=== PATIENT | male | born 1960 | race Caucasian/White ===

== ENCOUNTER 2020-04-03 11:53 | Inpatient (IN) | payer MEDICAID, SELFPAY ==
--- NOTE | ~2020-04-03 | XR_ITS ---
EXAMINATION: XR chest 1V portable EXAM DATE: 04/03/2020 13:06 INDICATION: Hip fracture, preoperative. TECHNIQUE: Portable AP frontal chest x-ray was obtained. There is no prior study for comparison. FINDINGS: Moderate hyperinflation. Biapical opacities consistent with scarring. Right basilar granulo ma. The lungs are otherwise clear. There are no pleural effusions. The cardiomediastinal silhouette is within normal limits. There is no pneumothorax suspected. The bones and soft tissues are unrema rkable. IMPRESSION: 1. No acute cardiopulmonary findings. 2. Hyperinflation. Reviewed, dictated and finalized at location B.
--- NOTE | ~2020-04-03 | US_ITS ---
EXAMINATION: US right upper quadrant DATE: 04/04/2020 08:49 INDICATION: Abnormal liver function tests. TECHNIQUE: Multiple grayscale and Doppler ultrasound images of the abdomen were obtained. COMPARISON: None FINDINGS: The visualized portions of the head, body, and tail of the pancreas are normal. The liver i s normal without focal lesion. No liver surface nodularity. There is normal flow in main portal vein. The gallbladder is normal in size and contains a 2 mm polyp, likely benign and needing no follow-up. No gallstones or gallbladder wall thickening. There was no sonographic Burk sign. The common duct is normal and measures 3 mm. IMPRESSION: 1. No etiology for abnormal liver function tests. Reviewed, dictated and finalized at location A.
--- NOTE | ~2020-04-03 | XR_ITS ---
EXAMINATION: XR surgery orthopedic DATE: 04/08/2020 08:29 INDICATION: Intertrochanteric nailing of the right femur. TECHNIQUE: 4 fluoroscopic spot images of the right femur were obtained during procedure performed by Dr. Perera. Radiologist was not present for the imaging or procedure. The amount of fluoroscopy time used during this procedure was 0.7 minutes. COMPARISON: 04/03/2020 FINDINGS: Interval reduction of previously seen intratrochanteric fracture of the proximal left femur which is fixed with an antegrade intramedullary jaylan, femoral neck dynamic compression screw and distal interlo cking screw. Alignment post reduction and fixation is near-anatomic. No other fractures identified. M oderate right hip osteoarthritis. Scattered atherosclerotic calcifications at the right pelvis and th igh. IMPRESSION: 1. Near-anatomic alignment post ORIF of an intratrochanteric fracture of the proximal right femur. Reviewed, dictated and finalized at location A. IMPRESSION: 1. Near-anatomic alignment post ORIF of an intratrochanteric fracture of the pr oximal right femur.
--- NOTE | ~2020-04-03 | CT_ITS ---
EXAMINATION: CT brain wo con DATE: 04/05/2020 16:23 INDICATION: Confusion. TECHNIQUE: Computed tomography (CT) of the head was performed without intravenous contrast. The mA wa s adjusted according to patient size. Iterative reconstruction technique was employed. The dose-lengt h product was 605.33 mGy-cm. COMPARISON: None FINDINGS: There are scattered areas of low attenuation in the cerebral white matter. There is no intr acranial hemorrhage, acute infarction, or abnormal intracranial mass lesion. The ventricles are jordyn l in size. There is an osteoma in left ethmoid sinus. The mastoid air cells are normal. The orbits ar e normal. IMPRESSION: 1. Mild nonspecific cerebral white matter disease, which likely represents chronic small vessel ische christel disease. Reviewed, dictated and finalized at location A. IMPRESSION: 1. Mild nonspecific cerebral white matter disease, which likely represents global regulatory affairs manager ijeoma small vessel ischemic disease.
--- NOTE | ~2020-04-03 | XR_ITS ---
EXAMINATION: XR hip RT 2V w AP pelvis EXAM DATE: 04/03/2020 12:27 INDICATION: Fell 3 days ago, right hip pain. TECHNIQUE: Right hip frontal, crosstable lateral projections for interpretation. Frontal projection p patricia. There is no prior study for comparison. FINDINGS: Acute closed posttraumatic right hip intertrochanteric fracture with medial angulation. No dislocation. Pelvic ring appears intact. There are arterial calcifications, arteriosclerosis. IMPRESSION: Acute right hip intertrochanteric fracture. Reviewed, dictated and finalized at location B.
--- NOTE | ~2020-04-03 | CT_ITS ---
EXAMINATION:CT chest wo con DATE: 04/05/2020 16:23 INDICATION: Shortness of breath. TECHNIQUE: Computed tomography (CT) of the chest was performed without intravenous contrast. Automate d exposure control and iterative reconstruction technique were employed. The dose-length product (DLP ) was 138.79 mGy-cm. COMPARISON: Chest single view 04/03/2020 FINDINGS: There is mild emphysema. There is mild scarring at the lung apices. A calcified right lung nodule is consistent with old granulomatous disease. There is a calcified pleural plaque at right sloan g base. There are airspace and groundglass opacities in the posterior upper and lower lobes. There ar e mild peripheral ground glass opacities in right middle lobe and lingula. There is mucous plugging i n right lower lobe bronchus intermedius. There are small pleural effusions. The heart size is normal. There are coronary artery calcifications. No pericardial effusion. There is mild thoracic spondylosi s. There is a compression fracture of T6 with 1/5 loss of height. There is a burst fracture of T12 wi th 3/5 loss of height centrally and retropulsion of bone 3 mm into central spinal canal. IMPRESSION: 1. Airspace and groundglass opacities in the lungs with a dependent predominance, likely atelectasis. Pneumonia cannot be excluded. 2. Small pleural effusions. 3. Mild emphysema. 4. Age-indeterminate T6 compression fracture and T12 burst fracture. Reviewed, dictated and finalized at location A. IMPRESSION: 1. Airspace and groundglass opacities in the lungs with a dependent predominanc e, likely atelectasis. Pneumonia cannot be excluded. 2. Small pleural effusions. 3. Mild emphysema. 4. Age-indeterminate T6 compression fracture and T12 burst fracture.
[2020-04-03 11:56] VITALS: BP 130/88; PULSE 98; RESP 16; TEMP 36.5; O2SAT 98
--- NOTE | 2020-04-03 12:54 | ECG_ITS ---
Measurements Intervals [place] Rate: 99 P: 70 OR: 147 QRS: 83 QRSD: 86 T: 90 QT: 350 QTc: 449 Interpretive Statements SINUS RHYTHM BORDERLINE ST ABNORMALITY- DIFFUSE LEADS BASELINE ARTIFACT- I, II, III, AVL, V1, V5-V6 BORDERLINE ECG Electronically Signed On 04-03-2020 14:30:25 CDT by Efe Jacobo D.O.
--- NOTE | 2020-04-03 12:59 | ED.GENADULT ---
HPI - General Adult General Chief complaint: Extremity Injury, Lower Stated complaint: R HIP PAIN Time Seen by Provider: 04/03/20 12:17 Source: patient History of Present Illness HPI narrative: 59 years old white male presents with pain at the right hip area. Patient had a fall 4 days ago after having a spell of dizziness at home. Patient reports a history of intermittent dizziness for over 2 years of unknown etiology. Patient lives alone, last time was seen by a physician over 20 years ago, patient uses vitamins which he ran out of it lately. Denying taking any medications or any history of disease. Patient is alcoholic, and tobacco dependent. Denies drug use. Related Data Home Medications Medication Instructions Recorded Confirmed No Home Medications 04/03/20 04/03/20 Allergies Allergy/AdvReac Type Severity Reaction Status Date / Time No Known Allergies Allergy Verified 04/03/20 12:00 Review of Systems Review of Systems: Narrative: CONSTITUTIONAL: Denies fever, chills, or sweats. EYES: Denies visual changes, redness, or discharge. ENT: Denies rhinorrhea, congestion, sore throat, or otalgia. CARDIOVASCULAR: Denies chest pain, palpitations, or edema. RESPIRATORY: Denies cough or dyspnea. GASTROINTESTINAL: Denies abdominal pain, nausea, vomiting, or diarrhea. GENITOURINARY: Denies dysuria or hematuria. SKIN: Denies rash or itching. MUSCULOSKELETAL: Denies back pain, joint pain, or myalgia. NEUROLOGIC: Denies headache, numbness, or weakness. PSYCHIATRIC: Denies anxiety or depression. FORMERLY [facility], 1928–1983 Social History Social History (Updated 04/03/20 @ 13:04 by Petra Dumas MD) Tobacco type: cigarettes Alcohol intake: current Substance use: never Living arrangements: alone Occupation/Education: unemployed Gender identity (if verbalized by the patient): Male Exam Narrative: Exam Narrative: General appearance: Well-developed,, malnourished, poor hygienic condition, friend at the bedside. Skin: Normal color, is soft mass at the left face immediately below left eye, 3 x 3 cm, soft, nontender. Head: Normocephalic, nontraumatic Eyes: Clear conjunctiva ENT: Oropharynx normal, ears normal, nose normal Neck: Supple, nontender Chest and respiratory: Airway patent, no respiratory distress, no accessory muscle use Heart: Regular rate/rhythm Abdomen: Soft, nontender, no organomegaly, quiet bowel sounds Vascular: Normal peripheral pulses, normal capillary refill. Musculoskeletal: Severe limited range of motion of the right hip, right lower extremity is shorter and externally rotated than the left 1. Neurologic: Alert and oriented ?3, DIRECTOR E LEARNING is normal as tested, no gross motor deficit Course Course Emergency Course: Stable Consultations Consultation #1: Dr. Perera Date: 04/03/20 Time: 15:33 Consultation #2: Dr. Holcomb Date: 04/03/20 Time: 15:33 Vital Signs Vital signs: Vital Signs Temperature 36.5 C 04/03/20 11:56 Pulse Rate 98 04/03/20 11:56 Respiratory Rate 16 04/03/20 11:56 Blood Pressure 130/88 04/03/20 11:56 Pulse Oximetry 98 04/03/20 11:56 Temperature 36.5 C 04/03/20 11:56 Pulse Rate 72 04/03/20 14:00 Respiratory Rate 18 04/03/20 14:00 Blood Pressure 116/73 04/03/20 14:00 Pulse Oximetry 100 04/03/20 14:00 Medical Decision Making [facility] Narrative Medical decision making narrative: Patient presents with a fall secondary to dizziness, does not have a family physician, malnourished, complaining of pain at the right hip which is consistent with hip fracture. My plan to get labs, x-ray of the right hip, EKG and chest x-ray to rule out other medical conditions. Further plan to follow. X-ray showed f
[2020-04-03] MEDS: ONDANSETRON INJ 4 MG/2 ML VIAL IV PUSH (13:13)
[2020-04-03] MEDS: MORPHINE SULFATE (*CRX) 4 MG/ML INJ IV PUSH ×2 (13:13→22:25)
[2020-04-03 13:25] LABS: Basophils Percent Auto 0.3 % (0.2-1.2); Eosinophils Percent Auto 0.3 % (0-4.4); Hematocrit 32.9 % (42.0-52.0); Hemoglobin 11.8 g/dL (14.0-18.0); Immature Granulocyte Absolute 0.09 K/mm3 (0.00-0.031); Immature Granulocyte Percent A 0.7 % (0-0.5); Lymphocytes Absolute Auto 1.15 K/mm3 (0.9-3.2); Lymphocytes Percent Auto 9.3 % (18.3-44.2); Mean Corpuscular HGB Conc 35.9 g/dl (32-36); Mean Corpuscular Hemoglobin 34.4 pg (26-34); Mean Corpuscular Volume 95.9 fl (80-100); Mean Platelet Volume 11.6 fl (7.4-10.4); Monocytes Absolute Auto 0.9 K/mm3 (0.1-0.6); Monocytes Percent Auto 7.5 % (2.6-8.5); Neutrophils Absolute Auto 10.1 K/mm3 (1.3-6.7); Neutrophils Percent Auto 81.9 % (45.5-73.1); Platelet Count Result 164 k/mm3 (150-375); Red Blood Count 3.43 M/mm3 (4.6-6.20); Red Cell Distribution Width 11.9 % (11.5-14.5); White Blood Count 12.3 K/mm3 (4.5-10.0)
[2020-04-03 13:45] LABS: INR 1.3; Partial Thromboplastin Time 38.1 SECONDS (22.3-36.8); Prothrombin Time 15.6 Seconds (11.1-14.7)
[2020-04-03 14:00] VITALS: BP 116/73; PULSE 72; RESP 18; O2SAT 100
[2020-04-03 14:48] LABS: Add Urine Microscopic? YES; Appearance Urine Clear (Clear); Bacteria Urine Trace /hpf; Bilirubin Urine Negative (Negative); Blood Urine Negative (Negative); Color Urine Amber (Yellow); Glucose Urine UA Negative (Negative); Ketones Urine Trace mg/dL (Negative); Leukocyte Esterase Ur Negative LEU/UL (Negative); Mucus Urine Rare /lpf; Nitrate Urine Negative (Negative); Protein Urine Negative (Negative); RBC Urine 0-2 /hpf (0-2); Specific Grav Ur 1.019 (1.001-1.035); WBC Urine 0-3 /hpf
[2020-04-03 14:58] LABS: Alanine Aminotransferase 285 U/L (4-50); Alkaline Phosphatase 159 U/L (38-126); Anion Gap 6 mmol/L (8-16); Bilirubin,Total 2.1 mg/dL (0.2-1.3); Blood Urea Nitrogen 6 mg/dL (9-20); Calcium 8.5 mg/dL (8.4-10.2); Carbon Dioxide 30 mmol/L (22-30); Chloride 82 mmol/L (98-107); Estimated CRCL calculation 90 ml/min; Estimated Glomerular Filt Rate > 60; Glucose 91 mg/dL (75-110); Potassium 3.5 mmol/L (3.4-5.0); Sodium 118 mmol/L (137-145)
[2020-04-03 15:11] LABS: Aspartate Amino Transferase 813 U/L (17-59)
[2020-04-03 16:02] VITALS: BP 147/89; PULSE 70; RESP 18; O2SAT 99
[2020-04-03 16:20] VITALS: BP 134/81; PULSE 99; RESP 18; TEMP 36.7; O2SAT 97
--- NOTE | 2020-04-03 16:20 | PC.NURSE ---
This patient, Miles Schrader, was admitted to [facility] Surg Room 317-01. Patient/family oriented to hospital policies and general routines including ID bracelet, bed and alarms, visiting hours, pain management, procedures, bathroom and other care routines, personal items, smoking policy, room service/diet, and visiting hours. Valuables list has been completed. Information on how to activate the Rapid Response Team has been discussed. Patient/Family are encouraged to report perceived risks to care and to ask questions if they do not understand what they are told or what they should do.
[2020-04-03 16:33] VITALS: BMI 15.5
[2020-04-03] MEDS: SODIUM CHLORIDE 0.9% IV 1,000 ML 60 ML IV CONT (16:47)
--- NOTE | 2020-04-03 17:04 | PM.CNOR ---
Assessment and Plan Assessment and plan (1) Closed intertrochanteric fracture of right femur: Onset Date: 03/30/20 Code(s): S72.141A - Displaced intertrochanteric fracture of right femur, initial encounter for closed fracture Status: Acute Assessment and Plan: New patient consultation for chief complaint right hip pain after fall. History, physical exam and radiographs reviewed with the patient. right hip intertrochanteric fracture. Discussed the condition, nature, etiology and course of natural history with the patient. Treatment options including surgical and nonoperative treatment were reviewed. Risks and benefits of each as well as alternatives reviewed. The patient's questions were answered. Conservative treatment ice, compression and elevation. Unable to proceed with surgery at this time due to laboratory abnormalities and medical comorbidities. Discussed in detail with patient. Needs medical stabilization. He can then proceed with definitive treatment at that time. Mechanical DVT prophylaxis with SCDs in the interim. We will continue to follow. History of Present Illness HPI Consult date: 04/03/20 Requesting physician: Petra Dumas MD Consult reason: fracture (Right hip) Chief complaint: Fall, right hip fracture/hyponatremia Narrative: 59-year-old gentleman with history of alcoholism presented to the emergency room with right hip pain. States had dizziness and fell on the right hip March 30, 2020. Patient had pain with weight-bearing and getting around. Eventually presented to emergency room today. Review of Systems Constitutional: Constitutional: Denies fever(s) Eyes: Eyes: Denies blurry vision ENT: Reports Normal hearing present Cardiovascular: Cardiovascular: Denies chest pain and Denies dyspnea Respiratory: Respiratory: Denies dyspnea and Denies wheezing Gastrointestinal: Gastrointestinal: Denies abdominal pain Genitourinary: Genitourinary: Denies urinary urgency Musculoskeletal: Musculoskeletal: Reports as per HPI and Denies numbness Integumentary/Breasts: Skin/Breast: Denies changing lesions and Denies sores Neurologic: Reports Normal hearing present, Denies behavioral changes, Denies confusion, Denies numbness and Denies convulsions Psychiatric: Psychiatric: Denies behavioral changes, Denies confusion, Denies hallucinations and Reports other ( alcohol dependence) Endocrine: Endocrine: Denies heat intolerance Hematologic/Lymphatic: Hematologic/Lymphatic: Denies easy bleeding Allergic/Immunologic: Allergic/Immunologic: Denies wheezing PMFSH Family History Family History Grandparent Cancer Acute myocardial infarction Other No problems noted. Father Acute myocardial infarction Mother Bleeding ulcer Social History Social History Smoking packs per day: 1 Smoking cigarettes per day: 20.0 Years smoked: 40 Smoking pack-years: 40.00 Smoking status: Heavy tobacco smoker Tobacco type: cigarettes Second hand tobacco smoke exposure: Yes Alcohol intake: current Drinks per week: 70 Substance use: never Living arrangements: alone Occupation/Education: unemployed Gender identity (if verbalized by the patient): Male Spiritual care concerns: No Meds Home Medications and Allergies Home Medications Medication Instructions Recorded Confirmed Type No Home Medications 04/03/20 04/03/20 History Allergies Allergy/AdvReac Type Severity Reaction Status Date / Time No Known Allergies Allergy Verified 04/03/20 12:00 Vital Signs Vital Signs - 24 hr 04/03/20 11:56 04/03/20 14:00 04/03/20 16:02 Temperature 97.7 F Pulse Rate 98 72 70 Respiratory Rate 16 18 18 Blood Pressure 130/88 116/73 147/89 H Pulse Oximetry 98 100 99 04/03/20 16:20 Temperature 98.1 F Pulse Rate 99 Respiratory Rate 18 Blood Pr
--- NOTE | 2020-04-03 17:26 | PC.NURSE ---
This patient, Miles Schrader, was transferred to IMU 204-1 on 04/03/20 at 1715. Personal belongings sent with patient. Report given to Clair YANG. Appropriate documentation sent with patient.
[2020-04-03 18:29] LABS: Anion Gap 5 mmol/L (8-16); Blood Urea Nitrogen 7 mg/dL (9-20); Calcium 8.2 mg/dL (8.4-10.2); Carbon Dioxide 29 mmol/L (22-30); Chloride 83 mmol/L (98-107); Creatine Kinase 65 U/L (55-170); Estimated CRCL calculation 91 ml/min; Estimated Glomerular Filt Rate > 60; Glucose 84 mg/dL (75-110); Potassium 3.5 mmol/L (3.4-5.0); Sodium 117 mmol/L (137-145)
--- NOTE | 2020-04-03 18:46 | PC.NURSE ---
1962- Pt received from [address] [place] [address] - a/o x3 denies pain -monitor SR 80's - pt declined dinner wanted to go to sleep- pt oriented to room and routines of floor- call light in reach and bed alarm on
[2020-04-03 20:00] VITALS: BP 122/78; BP 134/81; PULSE 92; PULSE 97; RESP 18; TEMP 36.8; O2SAT 100; O2SAT 97
[2020-04-03 20:12] LABS: Creatinine Urine 36.7 mg/dL
[2020-04-03 20:32] LABS: Sodium Urine Random < 5 meq/L
[2020-04-03 21:07] LABS: Free T4 Free Thyroxine Reflex 1.57 ng/dL (0.78-2.19)
[2020-04-03 22:00] VITALS: BP 122/78; PULSE 99
--- NOTE | 2020-04-03 22:00 | PM.IMHP ---
H&P: HPI History of Present Illness Date/Time: 04/03/20 22:00 Chief complaint: Hip after fall. Narrative: Miles Schrader is a 59-year-old male smoker with longstanding history of alcohol abuse who presented to the emergency department earlier today via EMS from home for evaluation of right hip pain after a fall 4 days ago. Over last several months he has had episodes of dizziness, mainly when bending over, and he suffered a fall 4 days ago after 1 of these spells. He landed on his right buttock and hip, with immediate pain in the hip. Since that time he has not been able to bear weight on the right leg due to pain and he really has not been getting up and about, spending his time either in bed or scooting on the floor. His sister encouraged him to come in today and thus EMS was called. He was indeed found to have a right hip fracture and is being admitted in this setting. Preoperative labs demonstrated elevated LFTs with and severe hyponatremia with a sodium of 118. He does not have good caloric intake, typically eating 1 meal a day consisting of a sandwich, and the rest of his calories are in the form of beer. Typically he will drink anywhere from 6 to 10 beers of day, and this has been ongoing for 30+ years. His last drink was yesterday (Wednesday04/02/2020) afternoon and he consumed 6 beers. He has never had signs or symptoms of alcohol withdrawal but again typically drinks most days. At the time my evaluation he complains of some mild discomfort in this right hip, but is not significant. He denies head trauma and loss of consciousness in the fall 4 days ago and sustained no other injuries. He has not had fever, chills, or sweats. No recent cold or flu-like symptoms. No chest pain or shortness of breath. He denies nausea, vomiting, diarrhea, and dysuria. Review of Systems Review of Systems: Narrative: Twelve systems were reviewed with pertinent positives and negatives as per HPI. He has lost about 13 lb over the last 3 years, unintentionally. No known history of malignancy but he has not seen a physician for over 20 years. He denies headache, acute auditory visual changes, focal weakness, and paresthesias. No recent travel or sick contacts. No nausea at this time but he goes on to say that over the last several months he has suffered from GERD with occasional nausea and intermittent episodes of vomiting. He denies hematemesis, melena, and hematochezia. No dysuria or hematuria. No chest pain or palpitations. He occasionally has a dry hacking cough which she attributes to a smoker's cough. No history of venous thromboembolism. Except as documented, all other systems were reviewed and are negative. [facility] Past Medical History Medical History (Updated 04/03/20 @ 23:08 by Misa Cutler PA-C) Alcohol abuse Closed intertrochanteric fracture of right femur (03/30/20) Tobacco dependence Surgical History Surgical History (Updated 04/04/20 @ 02:29 by Misa Cutler PA-C) History of arthroscopy of left knee Family History Family History Grandparent Cancer Acute myocardial infarction Other No problems noted. Father Acute myocardial infarction Mother Bleeding ulcer Social History Social History (Updated 04/04/20 @ 02:30 by Misa Cutler PA-C) Social History: Surrogate decision maker: Rajeev Schrader, brother. Code status: Full code. Smoking packs per day: 1 Smoking cigarettes per day: 20.0 Years smoked: 40 Smoking pack-years: 40.00 Tobacco type: cigarettes Second hand tobacco smoke exposure: Yes Alcohol intake: current Drinks per week: 70 Alcohol use details: Drinks between 6 and 10 beers a day. Substance use: never Living arrangements: alone Additional living arrangements comments: Lives in his mother's home, she 2 weeks ago. Occupation/Education: unemployed Additional occupation/education comments
[2020-04-03] MEDS: NICOTINE (*PBKC) 21 MG PATCH 1 PATCH TRANSDERM (22:25)
[2020-04-03 22:28] LABS: Total Triiodothyronine (T3) 0.93 NG/ML (0.97-1.69)
[2020-04-03] MEDS: SODIUM CHLORIDE 0.9% IV 1,000 ML 75 ML IV CONT (23:39)
[2020-04-04] VITALS (13 sets, daily range): BP systolic 101–131; BP diastolic 67–85; PULSE 74–124; RESP 16–18; TEMP 36.1–36.9; O2SAT 96–100; BMI 15.5
[2020-04-04 02:58] LABS: Sodium 122 mmol/L (137-145)
[2020-04-04 05:27] LABS: Hemoglobin 11.7 g/dL (14.0-18.0); Mean Corpuscular HGB Conc 35.5 g/dl (32-36); Mean Corpuscular Hemoglobin 34.8 pg (26-34); Mean Corpuscular Volume 98.2 fl (80-100); Mean Platelet Volume 10.7 fl (7.4-10.4); Platelet Count Result 176 k/mm3 (150-375); Red Blood Count 3.36 M/mm3 (4.6-6.20); Red Cell Distribution Width 11.9 % (11.5-14.5); White Blood Count 11.5 K/mm3 (4.5-10.0)
[2020-04-04 05:37] LABS: INR 1.3; Prothrombin Time 15.7 Seconds (11.1-14.7)
[2020-04-04 05:38] LABS: Partial Thromboplastin Time 40.4 SECONDS (22.3-36.8)
[2020-04-04 05:43] LABS: Sodium 122 mmol/L (137-145)
[2020-04-04 05:57] LABS: Alanine Aminotransferase 360 U/L (4-50); Albumin Level 2.8 g/dL (3.5-5.1); Alkaline Phosphatase 139 U/L (38-126); Anion Gap 6 mmol/L (8-16); Bilirubin,Total 2.4 mg/dL (0.2-1.3); Blood Urea Nitrogen 8 mg/dL (9-20); Calcium 8.2 mg/dL (8.4-10.2); Carbon Dioxide 29 mmol/L (22-30); Chloride 87 mmol/L (98-107); Estimated CRCL calculation 75 ml/min; Estimated Glomerular Filt Rate > 60; Glucose 52 mg/dL (75-110); Magnesium 2.1 mg/dL (1.6-2.3); Potassium 3.5 mmol/L (3.4-5.0); Sodium 122 mmol/L (137-145)
[2020-04-04 06:10] LABS: Aspartate Amino Transferase 1094 U/L (17-59)
[2020-04-04] MEDS: GLUCOSE ORAL GEL 15 GM OF GLUCSE IN 37.5 GM TUBE PO (06:26)
[2020-04-04 06:32] LABS: Hepatitis B Surface Antigen Negative (Negative)
[2020-04-04 06:38] LABS: HAV RESULT Negative (Negative); Hepatitis B Core IgM Result Negative (Negative)
[2020-04-04 06:50] LABS: Hepatitis C Virus Antibody Negative (Negative)
[2020-04-04 06:59] LABS: Glucose Point of Care 101 (65-105)
[2020-04-04] MEDS: MORPHINE SULFATE (*CRX) 4 MG/ML INJ IV PUSH ×2 (07:56→18:52)
[2020-04-04] MEDS: NICOTINE (*PBKC) 21 MG PATCH 1 PATCH TRANSDERM (09:55)
[2020-04-04] MEDS: FOLIC ACID 1 MG TABLET PO (09:55)
[2020-04-04] MEDS: THIAMINE HCL 100 MG TABLET PO (09:55)
--- NOTE | 2020-04-04 09:59 | PM.IMPN ---
Progress Note: A&P Assessment and Plan (1) Closed intertrochanteric fracture of right femur: Onset Date: 03/30/20 Code(s): S72.141A - Displaced intertrochanteric fracture of right femur, initial encounter for closed fracture Status: Acute Assessment and Plan: He sustained a fall 4 days prior to admission and suffered a closed right intertrochanteric fracture. Dr. Perera has been consulted. Continue conservative care with ice, compression, elevation, and analgesics PRN. DVT prophylaxis per orthopedic surgery. Management per orthopedic surgery. Surgery on hold at this time given hyponatremia. Appreciate orthopedic surgery input. (2) Hyponatremia: Code(s): E87.1 - Hypo-osmolality and hyponatremia Status: Acute Assessment and Plan: Sodium 118 at presentation. Baseline unknown as he has not received medical care in 20 years. He appears clinically hypovolemic and FeNa was 0% suggesting pre-renal etiology. Beer potomania may be contributing. He is on no medications prior to admission. Urine and serum osmolalities are pending. He received IV fluids overnight and sodium improved from 117 to 122. Thyroid function studies were consistent with hypothyroidism and levothyroxine was initiated. AM cortisol was normal. Continue IV fluids for now. Nephrology has been consulted for further management. Continue q4hr sodium monitoring. (3) Alcoholic hepatitis: Code(s): K70.10 - Alcoholic hepatitis without ascites Status: Acute Assessment and Plan: Supported with AST/ALT ratio >2:1 and hx of alcohol dependence. Hepatitis panel was negative. RUQ US was unremarkable with normal liver with focal lesion or surface abnormality, normal portal flow, and unremarkable gallbladder. GI is on board. Order indirect and direct bilirubin given mild elevation of bilirubin to 2.4. He needs to stop drinking immediately. Management and further workup per GI. He will need outpatient follow-up. (4) Normocytic anemia: Code(s): D64.9 - Anemia, unspecified Status: Acute Assessment and Plan: Hb 11.8 and Hct 32.9 at admission. Will check iron studies, folate, and vitamin B12. He will need an outpatient screening colonoscopy given his age. Continue to monitor and transfuse PRN to maintain Hb >7. (5) Alcohol abuse: Code(s): F10.10 - Alcohol abuse, uncomplicated Status: Acute Assessment and Plan: He drinks 6-10 beers per day. He denies a prior hx of alcohol withdrawal symptoms/delirium tremens. Continue CIWA protocol. Librium and ativan are available PRN. Continue thiamine and folic acid Continue to monitor. CIWA is 0 and he has no clinical indication of withdrawal at this time. (6) Tobacco dependence: Code(s): F17.200 - Nicotine dependence, unspecified, uncomplicated Status: Chronic Assessment and Plan: Continue to encourage smoking cessation. Nicoderm patch was ordered. (7) Protein calorie malnutrition: Code(s): E46 - Unspecified protein-calorie malnutrition Status: Acute Assessment and Plan: Continue dietary supplements. Appreciate gas turbine powerplant mechanic input. (8) Hypothyroidism: Code(s): E03.9 - Hypothyroidism, unspecified Status: Acute Assessment and Plan: TSH elevated at 11.5, free T4 normal at 1.57, and total T3 low. Levothyroxine 50mcg was initiated. He will need repeat TSH w/reflex in 4-6 weeks outpatient. Subjective Date/time seen: 04/04/20 09:59 Mr. Schrader is a 59 y.o. male with PMH significant for tobacco and alcohol dependence who presented to the emergency department for the evaluation of right hip pain after suffering a mechanical fall 4 days prior. He had profound hyponatremia at presentation to the emergency department. He has not seen a doctor in 20 years and we have no prior labs for review to determine his baseline sodium. His only complaint today is right hip pain. He is also h
[2020-04-04 11:02] LABS: Sodium 121 mmol/L (137-145)
--- NOTE | 2020-04-04 11:09 | WPDGICN ---
Assessment and Plan Assessment and plan (1) Alcoholic hepatitis: Code(s): K70.10 - Alcoholic hepatitis without ascites Status: Acute Assessment and Plan: Patient has marked elevation of the LFTs. Elevated AST much greater than ALT consistent with alcoholic hepatitis. Plan is for alcohol avoidance supportive care present time period lab testing to exclude any other contributing causes of hepatitis will be obtained including viral serology. Would recommend continuing liver function test be monitored as an outpatient after discharge. Immediate concern is repair of his fractured hip. (2) Hyponatremia: Code(s): E87.1 - Hypo-osmolality and hyponatremia Status: Acute (3) Closed fracture of right hip: Qualifiers: Encounter type: sequela Qualified Code(s): S72.001S - Fracture of unspecified part of neck of right femur, sequela Code(s): S72.001A - Fracture of unspecified part of neck of right femur, initial encounter for closed fracture Status: Acute (4) Elevated liver enzymes: Code(s): R74.8 - Abnormal levels of other serum enzymes Status: Acute GI Consult Note Consult date/time: 04/04/20 11:09 HPI: Miles Schrader is a 59 year old male seen in evaluation at the request of the ER. patient with a long history of alcoholism apparently fell at home 4 days ago print since that time has had right hip and buttock pain. Upon presenting emergency room was found have a right hip fracture. His LFTs were quite elevated sodium was quite low. Patient typically drinks 6 or more beers on a daily basis and has done so for many years. He denies having had withdrawal symptoms in the past he has never had DTs. He has never been diagnosed with cirrhosis or other liver disease. Family history is noncontributory. Patient has no prior history of hepatitis or jaundice. Review of Systems Review of Systems: All systems reviewed & are unremarkable except as noted in HPI and below PMFSH Past Medical History Medical History Alcohol abuse Closed intertrochanteric fracture of right femur (03/30/20) Tobacco dependence Surgical History Surgical History (Updated 04/04/20 @ 02:29 by Misa Cutler PA-C) History of arthroscopy of left knee Family History Family History Grandparent Cancer Acute myocardial infarction Other No problems noted. Father Acute myocardial infarction Mother Bleeding ulcer Social History Social History (Updated 04/04/20 @ 02:30 by Misa Cutler PA-C) Social History: Surrogate decision maker: Rajeev Schrader, brother. Code status: Full code. Smoking packs per day: 1 Smoking cigarettes per day: 20.0 Years smoked: 40 Smoking pack-years: 40.00 Tobacco type: cigarettes Second hand tobacco smoke exposure: Yes Alcohol intake: current Drinks per week: 70 Alcohol use details: Drinks between 6 and 10 beers a day. Substance use: never Living arrangements: alone Additional living arrangements comments: Lives in his mother's home, she 2 weeks ago. Occupation/Education: unemployed Additional occupation/education comments: Retired [employer]. Gender identity (if verbalized by the patient): Male Spiritual care concerns: No Meds Home Medications and Allergies Home Medications Medication Instructions Recorded Confirmed Type No Home Medications 04/03/20 04/03/20 History Allergies Allergy/AdvReac Type Severity Reaction Status Date / Time No Known Allergies Allergy Verified 04/03/20 12:00 Vital Signs Vital Signs - 24 hr 04/03/20 11:56 04/03/20 14:00 04/03/20 16:02 Temperature 97.7 F Pulse Rate 98 72 70 Pulse Rate [Right Pedal (Dorsalis Pedis)] Respiratory Rate 16 18 18 Blood Pressure 130/88 116/73 147/89 H Pulse Oximetry 98 100 99 04/03/20 16:20 0
[2020-04-04 11:55] LABS: Glucose Point of Care 60 (65-105)
[2020-04-04 11:55] LABS: Glucose Point of Care 60 (65-105)
[2020-04-04] MEDS: DEXTROSE 50% 25 GM/50 ML SYRINGE IV PUSH (11:58)
[2020-04-04 12:25] LABS: Glucose Point of Care 175 (65-105)
[2020-04-04] MEDS: DEXTROSE 5%/0.9% SOD CHL 1,000 ML 75 ML IV CONT (12:56)
--- NOTE | 2020-04-04 13:14 | PM.PNORT ---
Progress Note: A&P Assessment and Plan (1) Closed intertrochanteric fracture of right femur: Onset Date: 03/30/20 Code(s): S72.141A - Displaced intertrochanteric fracture of right femur, initial encounter for closed fracture Status: Acute Assessment and Plan: Patient with continued hyponatremia. Viral liver panel reviewed. Discussed with Anesthesiology. Awaiting medical stabilization/ clearance prior to operative treatment. Hip fracture is stable for now. Subjective Subjective Date/Time Seen: 04/04/20 13:14 Patient awake and alert. Complains of right hip pain. Exam Const: General: No confusion Orientation/consciousness: patient oriented x3 and No confusion HENMT: Head: normal to inspection, normocephalic and atraumatic Eyes: Conjunctivae: conjunctivae normal Sclera: sclerae normal Neck: Neck: supple and nontender Chest: Chest palpation & inspection: normal inspection of the chest Resp: Effort & Inspection: normal respiratory effort and no audible wheezes Cardio: Rate: regular rate Rhythm: regular rhythm GI: GI Palp: No abdominal tenderness and Yes Soft to palpation : General: Yes deferred Skin: General skin exam: no rashes or lesions noted Neuro: General: patient oriented x3 and No confusion Extrem: General: capillary refill normal Right upper extremity: normal to inspection Left upper extremity: normal to inspection Right lower extremity: hip/thigh, ankle ( able to actively flex and extend ankle) and foot Left lower extremity: normal to inspection, hip/thigh, lower leg, ankle (no calf tenderness) and foot Psych: Affect: normal affect Objective Data Vital Signs Vital Signs: Vital Signs - 24 hr 04/03/20 14:00 04/03/20 16:02 04/03/20 16:20 Temperature 98.1 F Pulse Rate 72 70 99 Pulse Rate [Right Pedal (Dorsalis Pedis)] Respiratory Rate 18 18 18 Blood Pressure 116/73 147/89 H 134/81 Pulse Oximetry 100 99 97 04/03/20 20:00 04/03/20 22:00 04/04/20 00:00 Temperature 98.3 F 98.4 F Pulse Rate 92 99 102 H Pulse Rate [Right Pedal (Dorsalis Pedis)] 99 102 H Respiratory Rate 18 18 Blood Pressure 122/78 122/78 104/84 Pulse Oximetry 100 98 04/04/20 02:00 04/04/20 04:00 04/04/20 06:00 Temperature 98.3 F Pulse Rate 116 H 110 H 109 H Pulse Rate [Right Pedal (Dorsalis Pedis)] 110 H Respiratory Rate 18 Blood Pressure 106/75 Pulse Oximetry 100 04/04/20 07:43 04/04/20 08:00 04/04/20 10:00 Temperature 97 F L Pulse Rate 124 H 93 Pulse Rate [Right Pedal (Dorsalis Pedis)] 113 H Respiratory Rate 16 Blood Pressure 101/67 Pulse Oximetry 100 04/04/20 12:00 Temperature 98.2 F Pulse Rate 74 Pulse Rate [Right Pedal (Dorsalis Pedis)] 113 H Respiratory Rate 16 Blood Pressure 120/75 Pulse Oximetry 96 Intake/Output Intake/Output: Intake & Output 04/01/20 04/02/20 04/03/20 04/04/20 23:59 23:59 23:59 23:59 Intake Total 120 1000 Output Total 300 675 Balance -180 325 Meds/Results Medications: Active Medications Generic Name Dose Route Start Last Admin Trade Name Freq PRN Reason Stop Dose Admin Chlordiazepoxide HCl 10 mg 04/04/20 02:41 Librium Po PO Q8HR PRN Alcohol Withdrawal Dextrose 12.5 gm 04/04/20 06:11 04/04/20 11:58 Dextrose 50% Syringe IV PUSH 12.5 gm PRN PRN Administration Hypoglycemia Protocol Folic Acid 1 mg 04/04/20 09:00 04/04/20 09:55 Folic Acid PO 1 mg DAILY CARLEY Administration Glucagon 1 mg 04/04/20 06:11 Glucagon For Inj IM PRN PRN Hypoglycemia Protocol Glucose 15 gm 04/04/20 06:11 04/04/20 06:26 Glutose 15 PO 15 gm PRN PRN Administration Hypoglycemia Protocol Dextrose 1,000 mls @ 100 mls/hr 04/04/20 06:07 Dextrose 5% 1,000 Ml IVPB PRN PRN Hypoglycemia Protocol Dextrose 1,000 mls @ 100 mls/hr 04/04/20 06:11 Dextrose 5% 1,000 Ml IVPB PRN PRN Hypoglycemia Protoc
--- NOTE | 2020-04-04 14:34 | PCDIET ---
MD consult received. Spoke with patient earlier this date prior to diet advancement. Recommend adding Frozen Nutritional Treat (300kcal, 9g protein) BID - will follow up tomorrow to check intake and supplement acceptance and provide additional recommendations, as needed.
[2020-04-04 15:04] LABS: Sodium 121 mmol/L (137-145)
[2020-04-04 15:07] LABS: Bilirubin Indirect 1.2 mg/dL (0-1.1)
[2020-04-04 15:08] LABS: Acetaminophen < 10 ug/mL (10-30)
[2020-04-04 16:25] LABS: Glucose Point of Care 96 (65-105)
[2020-04-04 17:28] LABS: Sodium 121 mmol/L (137-145)
--- NOTE | 2020-04-04 17:29 | PM.CNNEP ---
Assessment and Plan Assessment and plan (1) Hyponatremia: Code(s): E87.1 - Hypo-osmolality and hyponatremia Status: Acute Assessment and Plan: acute versus chronic versus acute on chronic??? suspect a chronic component but unclear what baseline sodium level runs.... suspect multifactorial etiology: - alcohol abuse/beer potomania - volume depletion/dehydration - smoking - pain - need to consider possible underlying malignancy... agree with IV saline for now if fails to improve in the next 24 hours, consider 3% saline for completeness, check TSH, cortisol, SPE, UPE goal of therapy is a change of 6 - 9mmol/L in 24 hours follow trend of sodium (2) Closed intertrochanteric fracture of right femur: Onset Date: 03/30/20 Code(s): S72.141A - Displaced intertrochanteric fracture of right femur, initial encounter for closed fracture Status: Acute Assessment and Plan: Orthopedics following will eventually require surgical intervention (3) Elevated liver enzymes: Code(s): R74.8 - Abnormal levels of other serum enzymes Status: Acute Assessment and Plan: though to be secondary to alcoholic hepatitis Gastroenterology following (4) Alcohol abuse: Code(s): F10.10 - Alcohol abuse, uncomplicated Status: Acute Assessment and Plan: long and extensive history as noted withdrawal precautions in place thiamine and folate Will continue to follow. History of Present Illness Reason for Consult Consult date: 04/04/20 Reason for consult: hyponatremia Chief Complaint Chief complaint: Hip after fall. History of Present Illness Narrative: The patient is 59-year-old male with a past medical history as outlined below who presented to [facility] ER with complaints of left hip pain. The patient has been dealing with problems with dizziness or last several months apparently, because of this, suffered a fall four days prior to admission. Following this fall, where he landed on his rigt buttocks and hip, he had immediate pain in the hip area. due to the pain, he has not been able to ambulate and has been spending most of his time in bed. at the behest of his sister, he came to the emergency room for further evaluation. Workup and evaluation in the emergency room demonstrated the patient to be hemodynamically stable and imaging studies confirmed that he had a right hip fracture. Routine blood tests were significant for severe hyponatremia with a sodium of 118 and elevated liver function tests as well. As he has never seen a doctor in almost 20 years, is difficult to assess how acute or chronic these laboratory findings are. Nonetheless, given his right hip fracture, he was admitted the hospital for further evaluation and therapy. Renal consultation was requested given his severe hyponatremia. Since his admission, he has been receiving IV fluids in the form of normal saline as his urine electrolytes are highly suggestive of prerenal azotemia/volume depletion. His sodium level has remained relatively stable with some mild improvement since his admission. In spite of his severe hyponatremia, he does not appear to be symptomatic. The etiology of his hyponatremia is not entirely clear however given his extensive history of alcohol abuse is felt it is probably related to beer potomania coupled with volume depletion/dehydration. Currently, at the time of my visit, he appears to be in no acute distress and seiems to be more concerned about the right hip fracture than anything else. Review of Systems Review of Systems: Narrative: As per HPI. [facility] Past Medical History Medical History (Updated 04/05/20 @ 03:23 by Arlette Bean MD) Alcohol abuse Closed intertrochanteric fracture of right femur (03/30/20) Tobacco dependence Surgical History Surgical History (Updated 04/04/20 @ 02:29 by Misa
[2020-04-04 20:33] LABS: Sodium 122 mmol/L (137-145)
[2020-04-04] MEDS: chlordiazePOXIDE (*CRX) 10 MG CAPSULE PO (22:09)
[2020-04-04] MEDS: LORazepam INJ (*CRX) 2 MG/ML VIAL 1 MG IV PUSH (23:29)
[2020-04-05] VITALS (17 sets, daily range): BP systolic 95–147; BP diastolic 60–84; PULSE 92–137; RESP 16–20; TEMP 36–36.6; O2SAT 90–98
--- NOTE | 2020-04-05 00:08 | PC.NURSE ---
04/04/20: patient refused last blood drawl. patient is more confused. does not know where he is or what day it is. patient pulled out iv and called 911 because he thought the sound of the scd's was a gunshot going off and would not believe us otherwise. we had to turn them off. patient was cursing and very threatening to staff. dr baker went in to speak to patient to get patient to let us place another iv.
[2020-04-05 00:21] LABS: Glucose Point of Care 110 (65-105)
[2020-04-05 01:32] LABS: Sodium 125 mmol/L (137-145)
[2020-04-05] MEDS: DEXTROSE 5%/0.9% SOD CHL 1,000 ML 75 ML IV CONT (02:28)
[2020-04-05 04:51] LABS: Sodium 128 mmol/L (137-145)
[2020-04-05 05:01] LABS: Transferrin 106 mg/dL (206-381)
[2020-04-05 05:22] LABS: Iron 35 ug/dL (49-181)
[2020-04-05 05:33] LABS: Percent Iron Saturation 18 % (20-50)
[2020-04-05 06:08] LABS: Basophils Absolute Auto 0.1 K/mm3 (0.0-0.1); Basophils Percent Auto 0.7 % (0.2-1.2); Eosinophils Absolute Auto 0.2 K/mm3 (0-0.3); Eosinophils Percent Auto 2.5 % (0-4.4); Hemoglobin 10.4 g/dL (14.0-18.0); Immature Granulocyte Absolute 0.06 K/mm3 (0.00-0.031); Immature Granulocyte Percent A 0.8 % (0-0.5); Lymphocytes Absolute Auto 0.99 K/mm3 (0.9-3.2); Lymphocytes Percent Auto 12.9 % (18.3-44.2); Mean Corpuscular HGB Conc 34.7 g/dl (32-36); Mean Corpuscular Hemoglobin 34.4 pg (26-34); Mean Corpuscular Volume 99.3 fl (80-100); Mean Platelet Volume 10.6 fl (7.4-10.4); Monocytes Absolute Auto 0.8 K/mm3 (0.1-0.6); Monocytes Percent Auto 10.7 % (2.6-8.5); Neutrophils Absolute Auto 5.6 K/mm3 (1.3-6.7); Neutrophils Percent Auto 72.4 % (45.5-73.1); Platelet Count Result 175 k/mm3 (150-375); Red Blood Count 3.02 M/mm3 (4.6-6.20); Red Cell Distribution Width 12.2 % (11.5-14.5); White Blood Count 7.7 K/mm3 (4.5-10.0)
[2020-04-05 06:09] LABS: Folic Acid 13.9 ng/mL (2.76->20)
[2020-04-05 06:30] LABS: Vitamin D 25 Hydroxy < 12.8 ng/mL
[2020-04-05 07:40] LABS: Anion Gap 3 mmol/L (8-16); Blood Urea Nitrogen 2 mg/dL (9-20); Carbon Dioxide 30 mmol/L (22-30); Chloride 95 mmol/L (98-107); Estimated CRCL calculation 91 ml/min; Estimated Glomerular Filt Rate > 60; Glucose 114 mg/dL (75-110); Potassium 3.3 mmol/L (3.4-5.0); Sodium 128 mmol/L (137-145)
--- NOTE | 2020-04-05 07:41 | WPDGIPROGNO ---
Progress Note: A&P Additional Plan Patient is somewhat groggy and disoriented this morning. Apparently receiving sedation for concerns over alcohol withdrawal. Physical exam reveals patient to be this is a somnolent. Poorly arousable. Not well oriented. HEENT exam reveals no obvious icterus. Lungs are clear. Heart without murmur. Abdomen soft nontender with no obvious organomegaly. Tenderness of right hip noted. Labs reveal AST 1094 yesterday, ALT 360. Alk-phos 139. Impression 1. Alcoholic hepatitis. Plan to continue to monitor LFTs. Avoid alcohol important. This can be followed by LFTs for now. 2. Alcoholism. Patient may be experiencing alcohol withdrawal. 3. Mental status changes. Likely related to sedation. No signs of confabulation or hallucinations at this time. 4. Right hip fracture. Surgical repair pending. Plan to continue to monitor LFTs. No specific therapy aside from alcohol avoidance at this time. Continue to watch for alcohol withdrawal. Asymptomatically. Subjective Date/time seen: 04/05/20 07:41 Objective Data Vital Signs Vital Signs: Vital Signs - 24 hr 04/04/20 07:43 04/04/20 08:00 04/04/20 10:00 Temperature 97 F L Pulse Rate 124 H 93 Pulse Rate [Right Pedal (Dorsalis Pedis)] 113 H Respiratory Rate 16 Blood Pressure 101/67 Pulse Oximetry 100 04/04/20 12:00 04/04/20 14:00 04/04/20 16:00 Temperature 98.2 F 97.9 F Pulse Rate 74 99 93 Pulse Rate [Right Pedal (Dorsalis Pedis)] 113 H 113 H Respiratory Rate 16 16 Blood Pressure 120/75 124/70 Pulse Oximetry 96 99 04/04/20 18:00 04/04/20 20:00 04/04/20 22:00 Temperature 97.9 F Pulse Rate 97 82 85 Pulse Rate [Right Pedal (Dorsalis Pedis)] 82 Respiratory Rate 16 Blood Pressure 131/85 Pulse Oximetry 97 04/05/20 00:00 04/05/20 02:00 04/05/20 04:00 Temperature 97.6 F Pulse Rate 102 H 102 H 99 Pulse Rate [Right Pedal (Dorsalis Pedis)] 96 99 Respiratory Rate 18 18 Blood Pressure 95/60 L 105/65 Pulse Oximetry 93 90 04/05/20 06:00 Temperature Pulse Rate 107 H Pulse Rate [Right Pedal (Dorsalis Pedis)] Respiratory Rate Blood Pressure Pulse Oximetry Intake/Output Intake/Output: Intake & Output 04/02/20 04/03/20 04/04/20 04/05/20 23:59 23:59 23:59 23:59 Intake Total 120 1845 855 Output Total 300 1075 300 Balance -180 770 555 Meds/Results Medications: Active Medications Generic Name Dose Route Start Last Admin Trade Name Freq PRN Reason Stop Dose Admin Chlordiazepoxide HCl 10 mg 04/04/20 02:41 04/04/20 22:09 Librium Po PO 10 mg Q8HR PRN Administration Alcohol Withdrawal Dextrose 12.5 gm 04/04/20 06:11 04/04/20 11:58 Dextrose 50% Syringe IV PUSH 12.5 gm PRN PRN Administration Hypoglycemia Protocol Ergocalciferol 50,000 unit 04/05/20 09:00 Drisdol PO WEEKLY CARLEY Folic Acid 1 mg 04/04/20 09:00 04/04/20 09:55 Folic Acid PO 1 mg DAILY CARLEY Administration Glucagon 1 mg 04/04/20 06:11 Glucagon For Inj IM PRN PRN Hypoglycemia Protocol Glucose 15 gm 04/04/20 06:11 04/04/20 06:26 Glutose 15 PO 15 gm PRN PRN Administration Hypoglycemia Protocol Dextrose 1,000 mls @ 100 mls/hr 04/04/20 06:07 Dextrose 5% 1,000 Ml IVPB PRN PRN Hypoglycemia Protocol Dextrose 1,000 mls @ 100 mls/hr 04/04/20 06:11 Dextrose 5% 1,000 Ml IVPB PRN PRN Hypoglycemia Protocol Dextrose/Sodium Chloride 1,000 mls @ 60 mls/hr 04/04/20 12:40 04/05/20 02:28 Dextrose 5% Sodium Chloride 0.9% IV CONT 75 mls/hr .[id number] CARLEY Administration Levothyroxine Sodium 50 mcg 04/05/20 06:30 04/05/20 06:08 Synthroid PO Not Given DAILY@0630 CARLEY Lorazepam 1 mg 04/03/20 23:01 04/04/20 23:29 Ativan Inj IV PUSH 1 mg Q3H PRN Administration Withdrawal and CIWA 8 or more Morphine Sulfate 4 mg 04/03/20 15:03 04/04/20 18:52 Mo
--- NOTE | 2020-04-05 09:15 | PM.IMPN ---
Progress Note: A&P Assessment and Plan (1) Altered mental status: Code(s): R41.82 - Altered mental status, unspecified Status: Acute Assessment and Plan: Pt is very groggy today. Exam is non-focal. He received ativan and librium due to alcohol withdrawal with CIWA 33 which is likely contributing to sedation. Order CT brain and ammonia. Continue to monitor closely. (2) Closed intertrochanteric fracture of right femur: Onset Date: 03/30/20 Code(s): S72.141A - Displaced intertrochanteric fracture of right femur, initial encounter for closed fracture Status: Acute Assessment and Plan: He sustained a fall 4 days prior to admission and suffered a closed right intertrochanteric fracture. Dr. Perera has been consulted. Continue conservative care with ice, compression, elevation, and analgesics PRN. DVT prophylaxis per orthopedic surgery. Management per orthopedic surgery. Surgery was held yesterday given hyponatremia which has improved today. Appreciate orthopedic surgery input. (3) Hyponatremia: Code(s): E87.1 - Hypo-osmolality and hyponatremia Status: Acute Assessment and Plan: Sodium 118 at presentation. Baseline unknown as he has not received medical care in 20 years. He appears clinically hypovolemic and FeNa was 0% suggesting pre-renal etiology. Beer potomania may be contributing. He is on no medications prior to admission. Urine and serum osmolalities are pending. Sodium has improved with IV fluids to 128. IV function was lost and I have discontinued IV fluids for now as sodium has improved. Nephrology is following. Await further nephrology input. Thyroid function studies were consistent with hypothyroidism and levothyroxine was initiated. AM cortisol was normal. Continue q4hr sodium monitoring. Order chest CT due to hyponatremia with hx of tobacco dependence. (4) Alcoholic hepatitis: Code(s): K70.10 - Alcoholic hepatitis without ascites Status: Acute Assessment and Plan: Supported with AST/ALT ratio >2:1 and hx of alcohol dependence. Hepatitis panel was negative. RUQ US was unremarkable with normal liver with focal lesion or surface abnormality, normal portal flow, and unremarkable gallbladder. GI is on board. Additional workup is pending. He needs to stop drinking immediately. Management and further workup per GI. Check ammonia level. He will need outpatient follow-up. (5) Normocytic anemia: Code(s): D64.9 - Anemia, unspecified Status: Acute Assessment and Plan: Hb 11.8 and Hct 32.9 at admission. Iron studies are consistent with anemia of chronic disease. Folate and vitamin B12 are sufficient. He will need an outpatient screening colonoscopy given his age. Continue to monitor and transfuse PRN to maintain Hb >7. (6) Alcohol abuse: Code(s): F10.10 - Alcohol abuse, uncomplicated Status: Acute Assessment and Plan: He reports that he drinks 6-10 beers per day. He denied a prior hx of alcohol withdrawal symptoms/delirium tremens. He developed symptoms of alcohol withdrawal overnight and received librium and ativan. Continue CIWA protocol and monitor closely. Continue thiamine and folic acid. Continue librium and ativan PRN. I am reluctant to schedule librium at this moment as he seems sedated. (7) Tobacco dependence: Code(s): F17.200 - Nicotine dependence, unspecified, uncomplicated Status: Chronic Assessment and Plan: Continue to encourage smoking cessation. Nicoderm patch was ordered. (8) Protein calorie malnutrition: Code(s): E46 - Unspecified protein-calorie malnutrition Status: Acute Assessment and Plan: Continue dietary supplements. Appreciate inventory checker input. (9) Hypothyroidism: Code(s): E03.9 - Hypothyroidism, unspecified Status: Acute Assessment and Plan: TSH elevated at 11.5, free T4 normal at 1.57, and total T3 lo
--- NOTE | 2020-04-05 10:44 | PM.PNORT ---
Progress Note: A&P Assessment and Plan (1) Closed intertrochanteric fracture of right femur: Onset Date: 03/30/20 Code(s): S72.141A - Displaced intertrochanteric fracture of right femur, initial encounter for closed fracture Status: Acute Assessment and Plan: Hyponatremia improving. Discussed with Anesthesiology. Awaiting medical stabilization/ clearance prior to operative treatment. Hip fracture is stable for now. Sodium improved but evidence of withdrawal this AM. Cont conservative care and medical workup/ management. Tentative plan for surgery when stable. Subjective Subjective Date/Time Seen: 04/05/20 10:44 Evidence of behavioral withdrawal this AM. Patient now cooperative Exam HENMT: Head: normal to inspection, normocephalic and atraumatic Eyes: Conjunctivae: conjunctivae normal Sclera: sclerae normal Neck: Neck: supple and nontender Chest: Chest palpation & inspection: normal inspection of the chest Resp: Effort & Inspection: normal respiratory effort and no audible wheezes Cardio: Rate: regular rate Rhythm: regular rhythm GI: GI Palp: No abdominal tenderness and Yes Soft to palpation : General: Yes deferred Skin: General skin exam: no rashes or lesions noted Extrem: General: capillary refill normal Right upper extremity: normal to inspection Left upper extremity: normal to inspection Right lower extremity: hip/thigh, ankle ( able to actively flex and extend ankle) and foot Left lower extremity: normal to inspection, hip/thigh, lower leg, ankle (no calf tenderness) and foot Psych: Affect: normal affect Objective Data Vital Signs Vital Signs: Vital Signs - 24 hr 04/04/20 12:00 04/04/20 14:00 04/04/20 16:00 Temperature 98.2 F 97.9 F Pulse Rate 74 99 93 Pulse Rate [Right Pedal (Dorsalis Pedis)] 113 H 113 H Respiratory Rate 16 16 Blood Pressure 120/75 124/70 Pulse Oximetry 96 99 04/04/20 18:00 04/04/20 20:00 04/04/20 22:00 Temperature 97.9 F Pulse Rate 97 82 85 Pulse Rate [Right Pedal (Dorsalis Pedis)] 82 Respiratory Rate 16 Blood Pressure 131/85 Pulse Oximetry 97 04/05/20 00:00 04/05/20 02:00 04/05/20 04:00 Temperature 97.6 F Pulse Rate 102 H 102 H 99 Pulse Rate [Right Pedal (Dorsalis Pedis)] 96 99 Respiratory Rate 18 18 Blood Pressure 95/60 L 105/65 Pulse Oximetry 93 90 04/05/20 06:00 04/05/20 08:00 Temperature 96.8 F L Pulse Rate 107 H 103 H Pulse Rate [Right Pedal (Dorsalis Pedis)] Respiratory Rate 20 Blood Pressure 110/72 Pulse Oximetry 93 Intake/Output Intake/Output: Intake & Output 04/02/20 04/03/20 04/04/20 04/05/20 23:59 23:59 23:59 23:59 Intake Total 120 1845 855 Output Total 300 1075 300 Balance -180 770 555 Meds/Results Medications: Active Medications Generic Name Dose Route Start Last Admin Trade Name Freq PRN Reason Stop Dose Admin Chlordiazepoxide HCl 5 mg 04/05/20 09:14 Librium Po PO Q8HR PRN ETOH WITHDRAWAL Dextrose 12.5 gm 04/04/20 06:11 04/04/20 11:58 Dextrose 50% Syringe IV PUSH 12.5 gm PRN PRN Administration Hypoglycemia Protocol Ergocalciferol 50,000 unit 04/05/20 09:00 Drisdol PO Fr@0900 CARLEY Folic Acid 1 mg 04/04/20 09:00 04/04/20 09:55 Folic Acid PO 1 mg DAILY CARLEY Administration Glucagon 1 mg 04/04/20 06:11 Glucagon For Inj IM PRN PRN Hypoglycemia Protocol Glucose 15 gm 04/04/20 06:11 04/04/20 06:26 Glutose 15 PO 15 gm PRN PRN Administration Hypoglycemia Protocol Dextrose 1,000 mls @ 100 mls/hr 04/04/20 06:07 Dextrose 5% 1,000 Ml IVPB PRN PRN Hypoglycemia Protocol Dextrose 1,000 mls @ 100 mls/hr 04/04/20 06:11 Dextrose 5% 1,000 Ml IVPB PRN PRN Hypoglycemia Protocol Levothyroxine Sodium 50 mcg 04/05/20 06:30 04/05/20 06:08 Synthroid PO Not Given DAILY@0630 CARLEY Lorazepam 1 mg 04/03/20 23:01 04/04/20 23:29
[2020-04-05] MEDS: NICOTINE (*PBKC) 21 MG PATCH 1 PATCH TRANSDERM (10:50)
[2020-04-05 11:13] LABS: Sodium 128 mmol/L (137-145)
--- NOTE | 2020-04-05 11:38 | PCNFU ---
Nutrition Follow-Up Complete: Inadequate oral intake related to poor appetite, alcoholism as evidenced by BMI of 15.6. Goal: Patient to meet estimated nutritional needs. Progressing towards goal. We will continue current goal. Pt current nutrition is Regular, Level 7. Nutrition recommendation: Agree Last recorded weight is 41.1 kg. No new weight reported. Bowel Motility:NO BM reported at this time. Labs Reviewed:Na 128,BUN 2,Cr 0.4,Glu 114 Meds Noted:No meds given today. Additional Notes: Patient had been NPO for ETOH withdraw. Diet order has resumed, Regular diet with Nutritional Supplement Ice Cream BID, providing an additional 300 kcals and 9 gms protein. Plans for surgery when stable. Agree with diet orders at this time. Monitoring: Follow up every 3 days.
[2020-04-05 12:19] LABS: Glucose Point of Care 99 (65-105)
[2020-04-05 15:48] LABS: Sodium 129 mmol/L (137-145)
[2020-04-05 15:51] LABS: Ammonia 10 umol/L (9-30)
--- NOTE | 2020-04-05 16:05 | PM.PNNEP ---
Progress Note: A&P Assessment and Plan (1) Hyponatremia: Code(s): E87.1 - Hypo-osmolality and hyponatremia Status: Acute Assessment and Plan: acute versus chronic versus acute on chronic??? suspect a chronic component but unclear what baseline sodium level runs.... suspect multifactorial etiology: - alcohol abuse/beer potomania - volume depletion/dehydration (prerenal urine lytes) -- this is likely the major factor given improvement in sodium just with IVF resuscitation - smoking history and likely associated lung disease - pain - need to consider possible underlying malignancy... goal of therapy is a change of 6 - 9mmol/L in 24 hours (which is being met) sodium better TSH and cortisol noted; serum/urine osmo, SPE, and UPE pending follow trend of sodium (2) Closed intertrochanteric fracture of right femur: Onset Date: 03/30/20 Code(s): S72.141A - Displaced intertrochanteric fracture of right femur, initial encounter for closed fracture Status: Acute Assessment and Plan: Orthopedics following will eventually require surgical intervention (3) Elevated liver enzymes: Code(s): R74.8 - Abnormal levels of other serum enzymes Status: Acute Assessment and Plan: though to be secondary to alcoholic hepatitis Gastroenterology following (4) Alcohol abuse: Code(s): F10.10 - Alcohol abuse, uncomplicated Status: Acute Assessment and Plan: long and extensive history as noted withdrawal precautions in place thiamine and folate Will continue to follow. Subjective Date/time seen: 04/05/20 16:05 Sodium doing better but now with evidence of confusion concerning for possible alcohol withdrawal; hip surgery postponed until more medically stable; no acute distress noted. Exam Narrative: Exam Narrative: General: chronically ill appearing male in NAD Heart: normal S1 and S2; no rub Lungs: clear to auscultation Abdomen: soft, nontender, nondistended, positive bowel sounds Extremities: no cyanosis or clubbing; no edema Skin: warm and dry Objective Data Vital Signs Vital Signs: Vital Signs Temp Pulse Pulse Resp BP Pulse Ox 04/05/20 14:24 102 H 04/05/20 12:00 36.2 C L 101 H 16 134/73 97 04/05/20 10:00 98 04/05/20 08:00 36.0 C L 93 20 110/72 93 09/25/20 06:00 107 H 04/05/20 04:00 99 99 18 105/65 90 04/05/20 02:00 102 H 04/05/20 00:00 36.4 C 102 H 96 18 95/60 L 93 04/04/20 22:00 85 04/04/20 20:00 36.6 C 82 82 16 131/85 97 04/04/20 18:00 97 Intake/Output Intake/Output: Intake & Output 04/02/20 04/03/20 04/04/20 04/05/20 23:59 23:59 23:59 23:59 Intake Total 120 1845 855 Output Total 300 1075 750 Balance -180 770 105 Meds/Results Medications: Active Medications Generic Name Dose Route Start Last Admin Trade Name Freq PRN Reason Stop Dose Admin Chlordiazepoxide HCl 5 mg 04/05/20 22:00 Librium Po PO Q8HR CARLEY Dextrose 12.5 gm 04/04/20 06:11 04/04/20 11:58 Dextrose 50% Syringe IV PUSH 12.5 gm PRN PRN Administration Hypoglycemia Protocol Ergocalciferol 50,000 unit 04/05/20 09:00 04/05/20 10:46 Drisdol PO Not Given Fr@0900 [facility] Folic Acid 1 mg 04/04/20 09:00 04/05/20 10:46 Folic Acid PO Not Given DAILY CARLEY Glucagon 1 mg 04/04/20 06:11 Glucagon For Inj IM PRN PRN Hypoglycemia Protocol Glucose 15 gm 04/04/20 06:11 04/04/20 06:26 Glutose 15 PO 15 gm PRN PRN Administration Hypoglycemia Protocol Dextrose 1,000 mls @ 100 mls/hr 04/04/20 06:07 Dextrose 5% 1,000 Ml IVPB PRN PRN Hypoglycemia Protocol Dextrose 1,000 mls @ 100 mls/hr 04/04/20 06:11 Dextrose 5% 1,000 Ml IVPB PRN PRN Hypoglycemia Protocol Levothyroxine Sodium 50 mcg 04/05/20 06:30
[2020-04-05 17:21] LABS: Glucose Point of Care 83 (65-105)
[2020-04-05] MEDS: THIAMINE HCL 200 MG/2 ML VIAL 100 MG IV PUSH (20:31)
[2020-04-06] VITALS (15 sets, daily range): BP systolic 125–149; BP diastolic 76–88; PULSE 85–114; RESP 16–18; TEMP 36–37.1; O2SAT 93–100
[2020-04-06 00:39] LABS: Glucose Point of Care 80 (65-105)
[2020-04-06 04:18] LABS: Hematocrit 32.1 % (42.0-52.0); Mean Corpuscular HGB Conc 34.3 g/dl (32-36); Mean Corpuscular Hemoglobin 34.4 pg (26-34); Mean Corpuscular Volume 100.3 fl (80-100); Mean Platelet Volume 9.8 fl (7.4-10.4); Platelet Count Result 188 k/mm3 (150-375); Red Cell Distribution Width 12.4 % (11.5-14.5); White Blood Count 8.5 K/mm3 (4.5-10.0)
[2020-04-06 04:39] LABS: Alanine Aminotransferase 280 U/L (4-50); Albumin Level 2.7 g/dL (3.5-5.1); Alkaline Phosphatase 134 U/L (38-126); Ammonia < 9 umol/L (9-30); Anion Gap 6 mmol/L (8-16); Aspartate Amino Transferase 330 U/L (17-59); Bilirubin,Total 1.6 mg/dL (0.2-1.3); Blood Urea Nitrogen 2 mg/dL (9-20); Calcium 8.1 mg/dL (8.4-10.2); Carbon Dioxide 28 mmol/L (22-30); Chloride 97 mmol/L (98-107); Estimated CRCL calculation 117 ml/min; Estimated Glomerular Filt Rate > 60; Glucose 95 mg/dL (75-110); Potassium 3.5 mmol/L (3.4-5.0); Sodium 131 mmol/L (137-145)
[2020-04-06] MEDS: MORPHINE SULFATE (*CRX) 2 MG/ML INJ IV PUSH (04:43)
[2020-04-06] MEDS: LEVOTHYROXINE SODIUM 50 MCG TABLET PO (06:06)
[2020-04-06 06:11] LABS: Glucose Point of Care 104 (65-105)
[2020-04-06] MEDS: THIAMINE HCL 200 MG/2 ML VIAL 100 MG IV PUSH (08:35)
[2020-04-06] MEDS: NICOTINE (*PBKC) 21 MG PATCH 1 PATCH TRANSDERM (08:35)
[2020-04-06] MEDS: FOLIC ACID 1 MG TABLET PO (08:36)
[2020-04-06] MEDS: ENOXAPARIN 40 MG/0.4 ML SYRINGE SUB-Q (09:54)
--- NOTE | 2020-04-06 10:11 | PM.PNNEP ---
Progress Note: A&P Assessment and Plan (1) Hyponatremia: Code(s): E87.1 - Hypo-osmolality and hyponatremia Status: Acute Assessment and Plan: acute versus chronic versus acute on chronic??? suspect a chronic component but unclear what baseline sodium level runs.... suspect multifactorial etiology: - alcohol abuse/beer potomania - volume depletion/dehydration (prerenal urine lytes) -- this is likely the major factor given improvement in sodium just with IVF resuscitation - smoking history and likely associated lung disease - pain - need to consider possible underlying malignancy... goal of therapy is a change of 6 - 9mmol/L in 24 hours (which is being met) sodium better TSH and cortisol noted; serum/urine osmo, SPE, and UPE pending follow trend of sodium (2) Closed intertrochanteric fracture of right femur: Onset Date: 03/30/20 Code(s): S72.141A - Displaced intertrochanteric fracture of right femur, initial encounter for closed fracture Status: Acute Assessment and Plan: Orthopedics following will eventually require surgical intervention (3) Elevated liver enzymes: Code(s): R74.8 - Abnormal levels of other serum enzymes Status: Acute Assessment and Plan: though to be secondary to alcoholic hepatitis Gastroenterology following (4) Alcohol abuse: Code(s): F10.10 - Alcohol abuse, uncomplicated Status: Acute Assessment and Plan: long and extensive history as noted withdrawal precautions in place thiamine and folate Will continue to follow. Subjective Date/time seen: 04/06/20 10:11 Appears more awake and alert in comparison to when I last saw him; no apparent distress voiced at the time of my visit; no other complaints to report; feels reasonably well. Exam Narrative: Exam Narrative: General: chronically ill appearing male in NAD Heart: normal S1 and S2; no rub Lungs: clear to auscultation Abdomen: soft, nontender, nondistended, positive bowel sounds Extremities: no cyanosis or clubbing; no edema Skin: warm and intact Objective Data Vital Signs Vital Signs: Vital Signs Temp Pulse Pulse Resp BP Pulse Ox 04/06/20 08:06 36.0 C L 104 H 16 142/81 H 100 04/06/20 08:00 96 04/06/20 07:00 95 04/06/20 06:00 96 114 H 09/26/20 05:00 104 H 04/06/20 04:00 36.3 C L 111 H 114 H 18 125/76 98 04/06/20 03:00 99 04/06/20 02:00 94 94 04/06/20 00:58 101 H 04/06/20 00:00 113 H 113 H 04/05/20 23:56 109 H 16 147/84 H 96 04/05/20 22:30 92 04/05/20 21:58 105 H 04/05/20 20:00 114 H 118 H 04/05/20 19:56 118 H 04/05/20 19:13 36.6 C 122 H 18 125/75 94 04/05/20 18:20 137 H 04/05/20 17:13 36.5 C 129 H 16 111/82 98 04/05/20 16:00 101 H 04/05/20 14:24 102 H 04/05/20 12:00 36.2 C L 101 H 16 134/73 97 Intake/Output Intake/Output: Intake & Output 04/03/20 04/04/20 04/05/20 04/06/20 23:59 23:59 23:59 23:59 Intake Total 120 1845 955 460 Output Total 300 1075 950 Balance -180 770 5 460 Meds/Results Medications: Active Medications Generic Name Dose Route Start Last Admin Trade Name Freq PRN Reason Stop Dose Admin Dextrose 12.5 gm 04/04/20 06:11 04/04/20 11:58 Dextrose 50% Syringe IV PUSH 12.5 gm PRN PRN Administration Hypoglycemia Protocol Enoxaparin Sodium 40 mg 04/06/20 09:00 04/06/20 09:54 Lovenox SUB-Q 40 mg DAILY CARLEY Administration Ergocalciferol 50,000 unit 04/05/20 09:00 04/05/20 10:46 Drisdol PO Not Given Fr@0900 [facility] Folic Acid 1 mg 04/04/20 09:00 04/06/20 08:36 Folic Acid PO 1 mg DAILY CARLEY Administration Glucagon 1 mg 04/04/20 06:11 Glucagon For Inj IM PRN PRN Hypoglycemia Protocol Glucose 15 gm 04/04/20 06:11 04/04/20 06:26
--- NOTE | 2020-04-06 11:24 | PC.NURSE ---
This patient, Miles Schrader, was transferred to [facility] on 04/06/20 at 1124. Personal belongings sent with patient. Belongings list checked and signed with receiving RN. Report given to CELIA Roberts. Appropriate documentation sent with patient.
[2020-04-06 11:34] LABS: Glucose Point of Care 109 (65-105)
--- NOTE | 2020-04-06 12:22 | WPDGIPROGNO ---
Progress Note: A&P Assessment and Plan (1) Alcoholic hepatitis: Code(s): K70.10 - Alcoholic hepatitis without ascites Status: Acute Assessment and Plan: continue with medical treatment and supportive care he is not confused today but at high risk of withdrawal/delirium (2) Elevated liver enzymes: Code(s): R74.8 - Abnormal levels of other serum enzymes Status: Acute Assessment and Plan: trending down hepatitis panel negative probably etoh related (3) Protein calorie malnutrition: Code(s): E46 - Unspecified protein-calorie malnutrition Status: Acute (4) Hyponatremia: Code(s): E87.1 - Hypo-osmolality and hyponatremia Status: Acute Assessment and Plan: slowly improving CT chest yesterday no lung mass, + atelectasis. (5) Alcohol abuse: Code(s): F10.10 - Alcohol abuse, uncomplicated Status: Acute Assessment and Plan: thiamine, MVI and monitor for withdrawal ciwa protocol (6) Closed intertrochanteric fracture of right femur: Onset Date: 03/30/20 Code(s): S72.141A - Displaced intertrochanteric fracture of right femur, initial encounter for closed fracture Status: Acute Assessment and Plan: orthopedics on board (7) Altered mental status: Code(s): R41.82 - Altered mental status, unspecified Status: Acute Subjective Date/time seen: 04/06/20 12:23 Interval history: he is in good spirits, he is not confused anymore. c/o pain in Rt hip Review of Systems Review of Systems: All systems reviewed & are unremarkable except as noted in HPI and below Exam Const: General: comfortable and no acute distress Other: chronically ill appearing, malnourished, thin HENMT: General nose exam: Normal nares present Eyes: General: appearance normal, both eyes and all related structures Neck: Neck: no JVD Resp: Auscultation: clear to auscultation bilaterally Cardio: Rate: regular rate Rhythm: regular rhythm GI: Inspection: non-distended GI Palp: Yes Soft to palpation Auscultation: normal bowel sounds Skin: General skin exam: normal color Neuro: Speech: normal speech Extrem: Other: pain right hip Psych: Affect: normal affect Objective Data Vital Signs Vital Signs: Vital Signs - 24 hr 04/05/20 14:24 04/05/20 16:00 04/05/20 17:13 Temperature 97.7 F Pulse Rate 102 H 101 H 129 H Pulse Rate [Right Pedal (Dorsalis Pedis)] Respiratory Rate 16 Blood Pressure 111/82 Pulse Oximetry 98 04/05/20 18:20 04/05/20 19:13 04/05/20 19:56 Temperature 98 F Pulse Rate 137 H 122 H Pulse Rate [Right Pedal (Dorsalis Pedis)] 118 H Respiratory Rate 18 Blood Pressure 125/75 Pulse Oximetry 94 04/05/20 20:00 04/05/20 21:58 04/05/20 22:30 Temperature Pulse Rate 114 H 105 H Pulse Rate [Right Pedal (Dorsalis Pedis)] 118 H 92 Respiratory Rate Blood Pressure Pulse Oximetry 04/05/20 23:56 04/06/20 00:00 04/06/20 00:58 Temperature Pulse Rate 109 H 113 H Pulse Rate [Right Pedal (Dorsalis Pedis)] 113 H 101 H Respiratory Rate 16 Blood Pressure 147/84 H Pulse Oximetry 96 04/06/20 02:00 04/06/20 03:00 04/06/20 04:00 Temperature 97.4 F L Pulse Rate 94 111 H Pulse Rate [Right Pedal (Dorsalis Pedis)] 94 99 114 H Respiratory Rate 18 Blood Pressure 125/76 Pulse Oximetry 98 04/06/20 05:00 04/06/20 06:00 04/06/20 07:00 Temperature Pulse Rate 96 Pulse Rate [Right Pedal (Dorsalis Pedis)] 104 H 114 H 95 Respiratory Rate Blood Pressure Pulse Oximetry 04/06/20 08:00 04/06/20 08:06 04/06/20 11:20 Temperature 96.8 F L 98.4 F Pulse Rate 96 104 H 85 Pulse Rate [Right Pedal (Dorsalis Pedis)] Respiratory Rate 16 18 Blood Pressure 142/81 H 131/76 Pulse Oximetry 100 93 Intake/Output Intake/Output: Intake & Output 04/03/20 04/04/20 04/05/20 04/06/20 23:59 23:59 23:59 23:59 Intake Total 120 8635 955 460 Output To
--- NOTE | 2020-04-06 15:35 | PM.IMPN ---
Progress Note: A&P Assessment and Plan (1) Altered mental status: Code(s): R41.82 - Altered mental status, unspecified Status: Acute Assessment and Plan: patient is alert and oriented x4 today with no mentation problems. original mental status changes probably multifactorial including elevated LFTs, hyponatremia, dehydration, and possibly even some alcohol withdrawal as well as medication induced with narcotics and benzo diazepam as metabolic parameters have improved his mental status has improved (2) Closed intertrochanteric fracture of right femur: Onset Date: 03/30/20 Code(s): S72.141A - Displaced intertrochanteric fracture of right femur, initial encounter for closed fracture Status: Acute Assessment and Plan: He sustained a fall 4 days prior to admission and suffered a closed right intertrochanteric fracture. Dr. Perera has been consulted. Continue conservative care with ice, compression, elevation, and analgesics PRN. DVT prophylaxis .. Surgery was held yesterday given hyponatremia which has improved and tentatively surgery scheduled for 04/08.. (3) Hyponatremia: Code(s): E87.1 - Hypo-osmolality and hyponatremia Status: Acute Assessment and Plan: Sodium 118 at presentation. Baseline unknown as he has not received medical care in 20 years. He appeared clinically hypovolemic and FeNa was 0% suggesting pre-renal etiology. Beer potomania may be contributing. He is on no medications prior to admission. Urine and serum osmolalities are pending. Sodium has improved with IV fluids to 131. IV now off. . Nephrology is following. . Thyroid function studies were consistent with hypothyroidism and levothyroxine was initiated. AM cortisol was normal. chest CT no malignancy just copd (4) Alcoholic hepatitis: Code(s): K70.10 - Alcoholic hepatitis without ascites Status: Acute Assessment and Plan: Supported with AST/ALT ratio >2:1 and hx of alcohol dependence. Hepatitis panel was negative. RUQ US was unremarkable with normal liver with focal lesion or surface abnormality, normal portal flow, and unremarkable gallbladder. Additional workup is pending. ammonia level normal. (5) Normocytic anemia: Code(s): D64.9 - Anemia, unspecified Status: Acute Assessment and Plan: Hb 11.8 and Hct 32.9 at admission. Iron studies are consistent with anemia of chronic disease. Folate and vitamin B12 are sufficient. He will need an outpatient screening colonoscopy given his age. Continue to monitor and transfuse PRN to maintain Hb >7. (6) Alcohol abuse: Code(s): F10.10 - Alcohol abuse, uncomplicated Status: Acute Assessment and Plan: He reports that he drinks 6-10 beers per day. He denied a prior hx of alcohol withdrawal symptoms/delirium tremens. He developed symptoms of alcohol withdrawal 24th pm and received librium and ativan. Continue CIWA protocol and monitor closely. Continue thiamine and folic acid. Continue librium and ativan PRN. (7) Tobacco dependence: Code(s): F17.200 - Nicotine dependence, unspecified, uncomplicated Status: Chronic Assessment and Plan: Continue to encourage smoking cessation. Nicoderm patch was ordered. (8) Protein calorie malnutrition: Code(s): E46 - Unspecified protein-calorie malnutrition Status: Acute Assessment and Plan: Continue dietary supplements. Appreciate stogy maker input. (9) Hypothyroidism: Code(s): E03.9 - Hypothyroidism, unspecified Status: Acute Assessment and Plan: TSH elevated at 11.5, free T4 normal at 1.57, and total T3 low. Levothyroxine 50mcg was initiated. He will need repeat TSH w/reflex in 4-6 weeks outpatient. Subjective Date/time seen: 04/06/20 15:35 Interval history: date of visit 04/06. 59-year-old alcoholic admitted with alcoholic hepatitis and hyponatremia with right
[2020-04-06] MEDS: POTASSIUM CHLORIDE 20 MEQ TABLET 40 MEQ PO (17:37)
[2020-04-06 17:49] LABS: SARS-CoV-2 RNA PCR Negative
[2020-04-06 17:54] LABS: Glucose Point of Care 85 (65-105)
[2020-04-06 18:25] LABS: Glucose Point of Care 119 (65-105)
[2020-04-06] MEDS: MORPHINE SULFATE (*CRX) 4 MG/ML INJ IV PUSH (20:11)
[2020-04-07] VITALS (7 sets, daily range): BP systolic 111–141; BP diastolic 66–82; PULSE 86–116; RESP 12–18; TEMP 36.8–37.5; O2SAT 96–99
[2020-04-07 00:09] LABS: Glucose Point of Care 94 (65-105)
[2020-04-07 04:54] LABS: Osmolality, Urine 212 mOsm/kg (50-1200)
[2020-04-07] MEDS: LEVOTHYROXINE SODIUM 50 MCG TABLET PO (06:22)
[2020-04-07 06:39] LABS: Basophils Absolute Auto 0.1 K/mm3 (0.0-0.1); Basophils Percent Auto 0.8 % (0.2-1.2); Eosinophils Absolute Auto 0.2 K/mm3 (0-0.3); Eosinophils Percent Auto 2.1 % (0-4.4); Hematocrit 30.9 % (42.0-52.0); Hemoglobin 10.5 g/dL (14.0-18.0); Immature Granulocyte Absolute 0.09 K/mm3 (0.00-0.031); Immature Granulocyte Percent A 1.3 % (0-0.5); Lymphocytes Percent Auto 12.6 % (18.3-44.2); Mean Corpuscular Hemoglobin 34.4 pg (26-34); Mean Corpuscular Volume 101.3 fl (80-100); Mean Platelet Volume 9.7 fl (7.4-10.4); Monocytes Absolute Auto 1.1 K/mm3 (0.1-0.6); Monocytes Percent Auto 15.6 % (2.6-8.5); Neutrophils Absolute Auto 4.8 K/mm3 (1.3-6.7); Neutrophils Percent Auto 67.6 % (45.5-73.1); Platelet Count Result 228 k/mm3 (150-375); Red Blood Count 3.05 M/mm3 (4.6-6.20); Red Cell Distribution Width 13.1 % (11.5-14.5); White Blood Count 7.2 K/mm3 (4.5-10.0)
[2020-04-07 06:52] LABS: Alanine Aminotransferase 184 U/L (4-50); Albumin Level 2.7 g/dL (3.5-5.1); Alkaline Phosphatase 120 U/L (38-126); Anion Gap 2 mmol/L (8-16); Aspartate Amino Transferase 103 U/L (17-59); Bilirubin,Total 1.4 mg/dL (0.2-1.3); Blood Urea Nitrogen 3 mg/dL (9-20); Calcium 8.4 mg/dL (8.4-10.2); Carbon Dioxide 29 mmol/L (22-30); Chloride 101 mmol/L (98-107); Estimated CRCL calculation 89 ml/min; Estimated Glomerular Filt Rate > 60; Glucose 86 mg/dL (75-110); Phosphorus 3.1 mg/dL (2.5-4.5); Sodium 132 mmol/L (137-145)
[2020-04-07] MEDS: NICOTINE (*PBKC) 21 MG PATCH 1 PATCH TRANSDERM (08:34)
[2020-04-07] MEDS: ENOXAPARIN 40 MG/0.4 ML SYRINGE SUB-Q (08:34)
[2020-04-07] MEDS: THIAMINE HCL 100 MG TABLET PO (08:35)
[2020-04-07] MEDS: FOLIC ACID 1 MG TABLET PO (08:35)
--- NOTE | 2020-04-07 11:21 | WPDGIPROGNO ---
Progress Note: A&P Assessment and Plan (1) Alcoholic hepatitis: Code(s): K70.10 - Alcoholic hepatitis without ascites Status: Acute Assessment and Plan: liver enzymes better continue supportive care no more confusion last [address] Holcomb will resume care tomorrow (2) Hyponatremia: Code(s): E87.1 - Hypo-osmolality and hyponatremia Status: Acute Assessment and Plan: improving (3) Alcohol abuse: Code(s): F10.10 - Alcohol abuse, uncomplicated Status: Acute Assessment and Plan: thiamine, monitor for etoh withdrawal (4) Closed intertrochanteric fracture of right femur: Onset Date: 03/30/20 Code(s): S72.141A - Displaced intertrochanteric fracture of right femur, initial encounter for closed fracture Status: Acute Assessment and Plan: ortho team on board, surgery probably soon (5) Protein calorie malnutrition: Code(s): E46 - Unspecified protein-calorie malnutrition Status: Acute Subjective Date/time seen: 04/07/20 11:21 Interval history: no events, he has been eating and no more confusion. Still with pain in hip Review of Systems Review of Systems: All systems reviewed & are unremarkable except as noted in HPI and below Exam Const: General: comfortable and no acute distress Other: chronically ill appearing, malnourished, thin HENMT: General nose exam: Normal nares present Eyes: General: appearance normal, both eyes and all related structures Neck: Neck: no JVD Resp: Auscultation: clear to auscultation bilaterally Cardio: Rate: regular rate Rhythm: regular rhythm GI: Inspection: non-distended GI Palp: Yes Soft to palpation Auscultation: normal bowel sounds Skin: General skin exam: normal color Neuro: Speech: normal speech Extrem: Other: pain right hip Psych: Affect: normal affect Objective Data Vital Signs Vital Signs: Vital Signs - 24 hr 04/06/20 12:00 04/06/20 14:20 04/06/20 16:00 Temperature 98.7 F Pulse Rate 105 H Pulse Rate [Right Pedal (Dorsalis Pedis)] 103 H 101 H Respiratory Rate 18 Blood Pressure 130/78 134/86 149/88 H Pulse Oximetry 98 04/06/20 21:15 04/07/20 05:10 04/07/20 08:00 Temperature 98.5 F 98.2 F Pulse Rate 100 107 H Pulse Rate [Right Pedal (Dorsalis Pedis)] 86 Respiratory Rate 16 12 Blood Pressure 135/80 127/74 136/74 Pulse Oximetry 99 96 Intake/Output Intake/Output: Intake & Output 04/04/20 04/05/20 04/06/20 04/07/20 23:59 23:59 23:59 23:59 Intake Total 1845 955 460 260 Output Total 1075 950 150 300 Balance 770 5 310 -40 Meds/Results Medications: Active Medications Generic Name Dose Route Start Last Admin Trade Name Freq PRN Reason Stop Dose Admin Dextrose 12.5 gm 04/04/20 06:11 04/04/20 11:58 Dextrose 50% Syringe IV PUSH 12.5 gm PRN PRN Administration Hypoglycemia Protocol Enoxaparin Sodium 40 mg 04/06/20 09:00 04/07/20 08:34 Lovenox SUB-Q 40 mg DAILY CARLEY Administration Ergocalciferol 50,000 unit 04/05/20 09:00 04/05/20 10:46 Drisdol PO Not Given Fr@0900 CAR[facility] Folic Acid 1 mg 04/04/20 09:00 04/07/20 08:35 Folic Acid PO 1 mg DAILY CARLEY Administration Glucagon 1 mg 04/04/20 06:11 Glucagon For Inj IM PRN PRN Hypoglycemia Protocol Glucose 15 gm 04/04/20 06:11 04/04/20 06:26 Glutose 15 PO 15 gm PRN PRN Administration Hypoglycemia Protocol Dextrose 1,000 mls @ 100 mls/hr 04/04/20 06:11 Dextrose 5% 1,000 Ml IVPB PRN PRN Hypoglycemia Protocol Levothyroxine Sodium 50 mcg 04/05/20 06:30 04/07/20 06:22 Synthroid PO 50 mcg DAILY@0630 CARLEY Administration Lorazepam 1 mg 04/03/20 23:01 04/04/20 23:29 Ativan Inj IV PUSH 1 mg Q3H PRN Administration Withdrawal and CIWA 8 or more Morphine Sulfate 4 mg 04/03/20 15:03 04/06/20 20:11 Morphine Sulfate Inj (*Crx) IV PUSH 4 mg Q2H PRN Admini
--- NOTE | 2020-04-07 12:51 | PM.IMPN ---
Progress Note: A&P Assessment and Plan (1) Closed intertrochanteric fracture of right femur: Onset Date: 03/30/20 Code(s): S72.141A - Displaced intertrochanteric fracture of right femur, initial encounter for closed fracture Status: Acute Assessment and Plan: He sustained a fall 4 days prior to admission and suffered a closed right intertrochanteric fracture. Dr. Perera has been consulted. Continue conservative care with ice, compression, elevation, and analgesics PRN. Continue DVT prophylaxis. Surgery was held given hyponatremia which has improved and surgery is scheduled for 04/08. (2) Altered mental status: Code(s): R41.82 - Altered mental status, unspecified Status: Resolved Assessment and Plan: Resolved. Patient is A&Ox4 today and mentation is normal. Original mental status changes probably multifactorial including elevated LFTs, hyponatremia, dehydration, and possibly even some alcohol withdrawal as well as medication induced with narcotics and benzodiazepine. CT brain was ordered and unremarkable. Ammonia was normal. Continue to monitor. (3) Hyponatremia: Code(s): E87.1 - Hypo-osmolality and hyponatremia Status: Acute Assessment and Plan: Sodium 118 at presentation. Baseline unknown as he has not received medical care in 20 years. He appeared clinically hypovolemic and FeNa was 0% suggesting pre-renal etiology. Beer potomania may be contributing. He is on no medications prior to admission. Urine osmolality was 212 and serum osmolality is 249. Sodium has improved with IV fluids to 132 and IV fluids were discontinued early 04/05. Nephrology is following. Thyroid function studies were consistent with hypothyroidism and levothyroxine was initiated. AM cortisol was normal. Chest CT showed emphysema with no evidence of malignancy. SPE and UPE pending. (4) Alcoholic hepatitis: Code(s): K70.10 - Alcoholic hepatitis without ascites Status: Acute Assessment and Plan: Supported with AST/ALT ratio >2:1 and hx of alcohol dependence. Hepatitis panel was negative. RUQ US was unremarkable with normal liver with focal lesion or surface abnormality, normal portal flow, and unremarkable gallbladder. Ammonia level normal. LFTs continue to improve. INDIGO and AMA pending but liver disease felt likely secondary to acute alcoholic hepatitis given significant improvement in LFTs after cessation of alcohol use. (5) Normocytic anemia: Code(s): D64.9 - Anemia, unspecified Status: Acute Assessment and Plan: Hb 11.8 and Hct 32.9 at admission. Iron studies are consistent with anemia of chronic disease. Folate and vitamin B12 are sufficient. He will need an outpatient screening colonoscopy given his age. Continue to monitor and transfuse PRN to maintain Hb >7. (6) Alcohol abuse: Code(s): F10.10 - Alcohol abuse, uncomplicated Status: Acute Assessment and Plan: He reports that he drinks 6-10 beers per day. He denied a prior hx of alcohol withdrawal symptoms/delirium tremens. He developed symptoms of alcohol withdrawal the evening of 04/04 and received librium and ativan. He is having no further evidence of withdrawal. Continue CIWA protocol and monitor closely. Continue thiamine and folic acid. Continue librium and ativan PRN. (7) Tobacco dependence: Code(s): F17.200 - Nicotine dependence, unspecified, uncomplicated Status: Chronic Assessment and Plan: Continue to encourage smoking cessation. Nicoderm patch was ordered. (8) Protein calorie malnutrition: Code(s): E46 - Unspecified protein-calorie malnutrition Status: Acute Assessment and Plan: Continue dietary supplements. Continue to encouarge PO intake. Appreciate breeding technician input. (9) Hypothyroidism: Code(s): E03.9 - Hypothyroidism, unspecified Status: Acute Assessment and Plan: TSH elevated at 11.
--- NOTE | 2020-04-07 13:35 | PM.PNNEP ---
Progress Note: A&P Assessment and Plan (1) Hyponatremia: Code(s): E87.1 - Hypo-osmolality and hyponatremia Status: Acute Assessment and Plan: acute versus chronic versus acute on chronic??? suspect a chronic component but unclear what baseline sodium level runs.... suspect multifactorial etiology: - alcohol abuse/beer potomania - volume depletion/dehydration (prerenal urine lytes) -- this is likely the major factor given improvement in sodium just with IVF resuscitation - smoking history and likely associated lung disease - pain - need to consider possible underlying malignancy... goal of therapy is a change of 6 - 9mmol/L in 24 hours (which is being met) sodium better TSH and cortisol noted; serum/urine osmo, SPE, and UPE pending follow trend of sodium (2) Closed intertrochanteric fracture of right femur: Onset Date: 03/30/20 Code(s): S72.141A - Displaced intertrochanteric fracture of right femur, initial encounter for closed fracture Status: Acute Assessment and Plan: Orthopedics following will eventually require surgical intervention (3) Elevated liver enzymes: Code(s): R74.8 - Abnormal levels of other serum enzymes Status: Acute Assessment and Plan: though to be secondary to alcoholic hepatitis Gastroenterology following (4) Alcohol abuse: Code(s): F10.10 - Alcohol abuse, uncomplicated Status: Acute Assessment and Plan: long and extensive history as noted withdrawal precautions in place thiamine and folate Not much else to add from renal perspective -- will continue to follow from a distance. Subjective Date/time seen: 04/07/20 13:35 He appears to be doing reasonably well; mentation is stable and he is eating/drinking reasonably well; no issues overnight or earlier this AM; he is hoping for surgery soon to fix his leg; no apparent distress voiced at this time. Exam Narrative: Exam Narrative: General: chronically ill appearing male in NAD Heart: normal S1 and S2; no rub Lungs: clear to auscultation Abdomen: soft, nontender, nondistended, positive bowel sounds Extremities: no cyanosis or clubbing; no edema Skin: no rash or nodules Objective Data Vital Signs Vital Signs: \ Vital Signs Temp Pulse Pulse Resp BP Pulse Ox 04/07/20 12:00 108 H 131/79 04/07/20 08:00 86 136/74 04/07/20 05:10 36.8 C 107 H 12 127/74 96 04/06/20 21:15 36.9 C 100 16 135/80 99 04/06/20 16:00 101 H 149/88 H 04/06/20 14:20 37.1 C 105 H 18 134/86 98 Intake/Output Intake/Output: Intake & Output 04/04/20 04/05/20 04/06/20 04/07/20 23:59 23:59 23:59 23:59 Intake Total 1845 955 460 260 Output Total 1075 950 150 300 Balance 770 5 310 -40 Meds/Results Medications: Active Medications Generic Name Dose Route Start Last Admin Trade Name Freq PRN Reason Stop Dose Admin Dextrose 12.5 gm 04/04/20 06:11 04/04/20 11:58 Dextrose 50% Syringe IV PUSH 12.5 gm PRN PRN Administration Hypoglycemia Protocol Enoxaparin Sodium 40 mg 04/06/20 09:00 04/07/20 08:34 Lovenox SUB-Q 40 mg DAILY CARLEY Administration Ergocalciferol 50,000 unit 04/05/20 09:00 04/05/20 10:46 Drisdol PO Not Given Fr@0900 CARLEY Folic Acid 1 mg 04/04/20 09:00 04/07/20 08:35 Folic Acid PO 1 mg DAILY CARLEY Administration Glucagon 1 mg 04/04/20 06:11 Glucagon For Inj IM PRN PRN Hypoglycemia Protocol Glucose 15 gm 04/04/20 06:11 04/04/20 06:26 Glutose 15 PO 15 gm PRN PRN Administration Hypoglycemia Protocol Dextrose 1,000 mls @ 100 mls/hr 04/04/20 06:11 Dextrose 5% 1,000 Ml IVPB PRN PRN Hypoglycemia Protocol Levothyroxine Sodium 50 mcg 04/05/20 06:30 04/07/20 06:22 Synthroid PO 50 mcg DAILY@0630 CARLEY Administration Lorazepam 1 mg 04/03/20 2
[2020-04-07 13:37] LABS: Glucose Point of Care 107 (65-105)
[2020-04-07 19:06] LABS: Glucose Point of Care 101 (65-105)
[2020-04-07 23:48] LABS: Glucose Point of Care 104 (65-105)
[2020-04-08] VITALS (16 sets, daily range): BP systolic 125–159; BP diastolic 74–96; PULSE 80–108; RESP 10–22; TEMP 36.1–36.9; O2SAT 92–100
[2020-04-08] MEDS: LEVOTHYROXINE SODIUM 50 MCG TABLET PO (05:40)
[2020-04-08 05:57] LABS: Glucose Point of Care 81 (65-105)
--- NOTE | 2020-04-08 06:05 | PC.NURSE ---
To OR per bed, IV patent SL. Report given to Reyna YANG.
[2020-04-08 06:10] LABS: Basophils Absolute Auto 0.1 K/mm3 (0.0-0.1); Basophils Percent Auto 0.8 % (0.2-1.2); Eosinophils Absolute Auto 0.1 K/mm3 (0-0.3); Eosinophils Percent Auto 1.7 % (0-4.4); Hematocrit 31.2 % (42.0-52.0); Hemoglobin 10.5 g/dL (14.0-18.0); Immature Granulocyte Absolute 0.07 K/mm3 (0.00-0.031); Immature Granulocyte Percent A 0.9 % (0-0.5); Lymphocytes Absolute Auto 1.14 K/mm3 (0.9-3.2); Mean Corpuscular HGB Conc 33.7 g/dl (32-36); Mean Corpuscular Hemoglobin 34.3 pg (26-34); Mean Platelet Volume 9.5 fl (7.4-10.4); Monocytes Absolute Auto 1.1 K/mm3 (0.1-0.6); Monocytes Percent Auto 14.8 % (2.6-8.5); Neutrophils Absolute Auto 5.1 K/mm3 (1.3-6.7); Neutrophils Percent Auto 66.8 % (45.5-73.1); Platelet Count Result 278 k/mm3 (150-375); Red Blood Count 3.06 M/mm3 (4.6-6.20); Red Cell Distribution Width 13.2 % (11.5-14.5); White Blood Count 7.6 K/mm3 (4.5-10.0)
[2020-04-08] MEDS: LACTATED RINGERS 1,000 ML 30 ML IV CONT (06:20)
--- NOTE | 2020-04-08 06:27 | P.PNAN_ITS ---
Anes - Eval Final PreProcedure Day of Procedure 04/08/20 06:27 Patient weight: thin Heart: regular rate and rhythm Lungs: clear to auscultation Airway: Mallampati scale class II Neurological: alert and oriented Last oral intake: >/= 8 hours ASA classification: IV Emergent: no Anesthetic plan: proceed Anesthesia type and monitoring: general ETT and standard monitoring Informed Consent: The patient's anesthetic plan and its attendant risks and bene fits were discussed with the patient/family/POA. Questions were solicited and answers provided to the satisfaction of the patient/family/POA.
[2020-04-08 06:29] LABS: Alanine Aminotransferase 124 U/L (4-50); Albumin Level 2.7 g/dL (3.5-5.1); Alkaline Phosphatase 110 U/L (38-126); Anion Gap 6 mmol/L (8-16); Aspartate Amino Transferase 50 U/L (17-59); Bilirubin,Total 1.4 mg/dL (0.2-1.3); Blood Urea Nitrogen 5 mg/dL (9-20); Calcium 8.4 mg/dL (8.4-10.2); Carbon Dioxide 26 mmol/L (22-30); Chloride 104 mmol/L (98-107); Estimated CRCL calculation 89 ml/min; Estimated Glomerular Filt Rate > 60; Glucose 88 mg/dL (75-110); Magnesium 2.1 mg/dL (1.6-2.3); Potassium 3.9 mmol/L (3.4-5.0); Sodium 136 mmol/L (137-145)
[2020-04-08] MEDS: KETOROLAC 15 MG/ML VIAL (*BKC) IV PUSH (06:32)
[2020-04-08] MEDS: TRANEXAMIC ACID 1,000MG/ISO100 1,000 MG/100 ML BAG 200 MG IVPB (06:34)
[2020-04-08 06:35] LABS: INR 1.2; Prothrombin Time 14.5 Seconds (11.1-14.7)
[2020-04-08 06:36] LABS: Partial Thromboplastin Time 37.7 SECONDS (22.3-36.8)
--- NOTE | 2020-04-08 07:15 | WPDHPUPDATE1 ---
History and Physical Update Update Date/Time: 04/08/20 07:15 History and Physical has been reviewed, including an updated exam of the patient. There are NO changes in the patient's condition.COVID test negative. Discussed right intertrochanteric hip fracture fixation with intramedullary hip screw. Risks, benefits, and alternatives have been discussed and questions answered. Patient agrees to proceed with procedure. Plan: Right hip intramedullary hip screw
[2020-04-08] MEDS: ceFAZolin 2 GM/D5W 50 ML 2 GM/50 ML BAG IVPB (07:20)
[2020-04-08] MEDS: BUPIVACAINE/EPINEPHRINE 0.5% 10 ML VIAL 30 ML INFILTRATE (08:01)
--- NOTE | 2020-04-08 08:52 | PM.PROC ---
Procedure Note - Detailed Date of procedure: 04/08/20 Pre-op diagnosis: Hip after fall. Right hip intertrochanteric fracture Post-op diagnosis: same Procedure performed: right hip intramedullary hip screw Description of procedure: Implants used: Diandra natural nail, 125 degree, 11.5 millimeter diameter 21.5 centimeter length nail, lag screw 10.5 millimeter x 85millimeter length. INDICATIONS: This is an 59-year-old -man who fell sustaining a right hip intertrochanteric femur fracture. patient has not been medically managed for over 20 years. He came in with a strong history of alcoholism. He was medically stabilized and cleared for surgery and anesthesia. Indicated for reduction and intramedullary hip screw fixation, right hip. DESCRIPTION OF PROCEDURE: After informed consent the operative extremity was marked in the preoperative holding area. Patient received intravenous antibiotics. The patient was taken to the operative room, placed in the supine position, general anesthesia induced by the anesthesia team, and was placed on a fracture table with longitudinal traction applied to the right leg. The hip fracture was reduced to near anatomic position and verified with image intensification. A time-out was performed confirming the patient, site of the surgery and plan. The right lower extremity was prepped and draped sterilely from the knee to the iliac crest region using a ChloraPrep skin solution. Incision was made just proximal to greater trochanter down to the subcutaneous tissues. Hemostasis controlled with electrocautery. Blunt dissection through the fascia to the tip of the greater trochanter. A starter awl was placed at the tip of the greater trochanter into the medullary canal of the femur. This was checked with image intensification and was in good position. Intramedullary guide jaylan positioned. A one-step hand reaming done proximally. Intramedullary canal was reamed with a 12.5 millimeter flexible reamer. Neck angle selected off of preoperative radiographs temp plating. 125 degree 11.5mm X 21.5cm Nail opened on the back table and assembled. This was then inserted over the guide jaylan to the correct depth. Guide jaylan removed. Lag screw was then placed with a stab incision over the lateral femur using a 10 blade knife. Blunt dissection down to the lateral side of the bone. Soft tissue protectors placed. Guide pin placed in the center center position of the femoral head and measured. 85 millimeter x 10.5 millimeter lag screw placed to correct depth and verified with image intensification. Traction released from the leg and compression of the fracture performed with the external compression device. Proximal locking screw placed. Distal locking of the nail then performed. Stab incision made lateral distal thigh. Blunt dissection down lateral side of the femur. Soft tissue protector placed. Femur drilled from lateral to medial through the distal nail. Distal femur measured and the appropriate size screw (30mm) placed. Image intensification confirmed the placement through the locking hole. Final image intensification confirmed reduction of the fracture and placement of the hardware. Wounds then thoroughly irrigated with antibiotic solution. Fascia repaired with 0 Vicryl interrupted suture. Subcutaneous tissue repaired with 00 Vicryl interrupted suture and skin repaired with yogesh. Sterile dressings applied. Patient then awoke from anesthesia, extubated, taken to recovery room stable condition. All sponge, needle and instrument counts correct at the end the case. Implants: Diandra natural nail 125 degree, 21.5 cm length with 85 mm lag screw and 30 mm locking screw. Anesthesia: GLMA Surgeon: Shaan Perera MD Chemical Laboratory Scientist: surgical dental assistant Estimated blood loss (mL): 100 Drains: No Packing: No Pathology: yes ( right femoral neck bone reaming to pathology to rule out metastatic disease) Complications: None Condition: stable Disposition: PAC
[2020-04-08 09:10] LABS: Glucose Point of Care 119 (65-105)
[2020-04-08] MEDS: fentaNYL CITRATE INJ (*CRX) 100 MCG/2 ML VIAL 25 MCG IV PUSH (09:20)
--- NOTE | 2020-04-08 10:05 | PC.NURSE ---
Back from OR report from Mohinder YANG
[2020-04-08] MEDS: THIAMINE HCL 100 MG TABLET PO (10:17)
[2020-04-08] MEDS: FOLIC ACID 1 MG TABLET PO (10:18)
--- NOTE | 2020-04-08 10:24 | WPDGIPROGNO ---
Progress Note: A&P Assessment and Plan (1) Alcoholic hepatitis: Code(s): K70.10 - Alcoholic hepatitis without ascites Status: Acute Assessment and Plan: Patient's LFTs continue to improve. Continued alcohol abstinence encourage. No specific therapy otherwise. (2) Closed fracture of right hip: Qualifiers: Encounter type: sequela Qualified Code(s): S72.001S - Fracture of unspecified part of neck of right femur, sequela Code(s): S72.001A - Fracture of unspecified part of neck of right femur, initial encounter for closed fracture Status: Acute Assessment and Plan: Patient is status post surgical repair hip fracture this morning. Oncology follow-up anticipated. (3) Elevated liver enzymes: Code(s): R74.8 - Abnormal levels of other serum enzymes Status: Acute Assessment and Plan: LFTs continue to improve. This is secondary to alcohol abuse. Alcohol avoidance strongly encourage. (4) Alcohol abuse: Code(s): F10.10 - Alcohol abuse, uncomplicated Status: Acute Subjective Date/time seen: 04/08/20 10:24 Patient more alert today. Comfortable. Status post hip repair this morning. Review of Systems Review of Systems: All systems reviewed & are unremarkable except as noted in HPI and below Constitutional: Constitutional: Reports no additional constitutional complaints Exam Narrative: Exam Narrative: Patient feels some postoperative pain in his hip today. Const: General: no acute distress HENMT: Other: Anicteric. Neck: Neck: no JVD GI: Auscultation: normal bowel sounds Other: No organomegaly evident today. Objective Data Vital Signs Vital Signs: Vital Signs - 24 hr 04/07/20 12:00 04/07/20 14:00 04/07/20 16:00 Temperature 99.5 F Pulse Rate 116 H Pulse Rate [Right Pedal (Dorsalis Pedis)] 108 H 111 H Respiratory Rate 16 Blood Pressure 131/79 111/66 134/81 Pulse Oximetry 98 04/07/20 18:16 04/07/20 21:55 04/08/20 04:53 Temperature 98.4 F 98.6 F 97.5 F L Pulse Rate 111 H 100 100 Pulse Rate [Right Pedal (Dorsalis Pedis)] Respiratory Rate 18 18 18 Blood Pressure 134/81 141/82 H 139/81 Pulse Oximetry 99 98 99 04/08/20 06:16 04/08/20 08:50 04/08/20 08:53 Temperature 98.2 F 97.9 F 96.9 F L Pulse Rate 108 H 83 102 H Pulse Rate [Right Pedal (Dorsalis Pedis)] Respiratory Rate 18 10 L 12 Blood Pressure 143/78 H 148/94 H 156/96 H Pulse Oximetry 99 99 100 04/08/20 09:05 04/08/20 09:20 04/08/20 09:35 Temperature 98 F 97.2 F L 97.3 F L Pulse Rate 97 87 85 Pulse Rate [Right Pedal (Dorsalis Pedis)] Respiratory Rate 12 16 12 Blood Pressure 159/94 H 147/88 H 143/92 H Pulse Oximetry 98 92 93 04/08/20 09:50 Temperature 97.4 F L Pulse Rate 84 Pulse Rate [Right Pedal (Dorsalis Pedis)] Respiratory Rate 12 Blood Pressure 146/93 H Pulse Oximetry 95 Intake/Output Intake/Output: Intake & Output 04/05/20 04/06/20 04/07/20 04/08/20 23:59 23:59 23:59 23:59 Intake Total 955 460 750 540 Output Total 950 150 650 290 Balance 5 310 100 250 Meds/Results Medications: Active Medications Generic Name Dose Route Start Last Admin Trade Name Freq PRN Reason Stop Dose Admin Dextrose 12.5 gm 04/04/20 06:11 04/04/20 11:58 Dextrose 50% Syringe IV PUSH 12.5 gm PRN PRN Administration Hypoglycemia Protocol Docusate Sodium 100 mg 04/08/20 11:00 Colace Capsule PO Q12HR [facility] Enoxaparin Sodium 30 mg 04/09/20 09:00 Lovenox SUB-Q DAILY [facility] Ergocalciferol 50,000 unit 04/05/20 09:00 04/05/20 10:46 Drisdol PO Not Given Fr@0900 CARLEY Folic Acid 1 mg 04/04/20 09:00 04/08/20 10:18 Folic Acid PO 1 mg DAILY CARLEY Administration Glucagon 1 mg 04/04/20 06:11 Glucagon For Inj IM PRN PRN Hypoglycemia Protocol Glucose 15 gm 04/04/20 06:11 04/04/20 06:26 Glutose 15 PO 15 gm PRN PRN Administration Hypoglycemia Pr
[2020-04-08] MEDS: DOCUSATE SODIUM 100 MG CAPSULE PO ×2 (10:26→20:08)
--- NOTE | 2020-04-08 11:25 | PCNFU ---
Nutrition Follow-Up Complete: Inadequate oral intake related to poor appetite, alcoholism as evidenced by BMI of 15.6. Goal: Patient to meet estimated nutritional needs. Progressing towards goal. We will continue current goal. Pt current nutrition is Regular. Nutrition recommendation: Agree Last recorded weight is 39.9 kg. Bowel Motility:NO BM reported. Labs Reviewed:Na 136,BUN 5,Cr 0.4, Alb 2.7 Meds Noted:Colace, Thiamine,Folic Acid Additional Notes: Patient seen today post opt-hip nailing. Diet order has advanced to a regular diet. He was drinking apple juice and asked for a deli sandwich for lunch. Nursing will be placing his order for lunch meal. He did have nutritional ice cream on trays prior to surgery he is not interested in those at this time. Monitoring: Follow up every 5 days.
--- NOTE | 2020-04-08 11:57 | PM.IMPN ---
Progress Note: A&P Assessment and Plan (1) Closed intertrochanteric fracture of right femur: Onset Date: 03/30/20 Code(s): S72.141A - Displaced intertrochanteric fracture of right femur, initial encounter for closed fracture Status: Acute Assessment and Plan: He sustained a fall 4 days prior to admission and suffered a closed right intertrochanteric fracture. Dr. Perera has been consulted. He is POD #0 s/p right hip intramedullary hip screw by Dr. Perera. He is doing well post-op. Mccollum is still in place. He is tolerating PO intake well and pain is well-controlled. Post-op care including pain management, weight-bearing, PT/OT, DVT prophylaxis per orthopedic surgery. Continue conservative care with ice, compression, elevation, and analgesics PRN. (2) Altered mental status: Code(s): R41.82 - Altered mental status, unspecified Status: Resolved Assessment and Plan: Resolved. Patient remains A&Ox4 with normal mentation. Original mental status changes probably multifactorial including elevated LFTs, hyponatremia, dehydration, and possibly even some alcohol withdrawal as well as medication induced with narcotics and benzodiazepine. CT brain was ordered and unremarkable. Ammonia was normal. Continue to monitor. (3) Hyponatremia: Code(s): E87.1 - Hypo-osmolality and hyponatremia Status: Acute Assessment and Plan: Sodium 118 at presentation. Baseline unknown as he has not received medical care in 20 years. He appeared clinically hypovolemic and FeNa was 0% suggesting pre-renal etiology. Beer potomania may be contributing. He is on no medications prior to admission. Urine osmolality was 212 and serum osmolality is 249. Sodium has improved with IV fluids to 136 and IV fluids were discontinued early 04/05. Nephrology is following distally and input appreciated. Thyroid function studies were consistent with hypothyroidism and levothyroxine was initiated. AM cortisol was normal. Chest CT showed emphysema with no evidence of malignancy. SPE and UPE pending. (4) Alcoholic hepatitis: Code(s): K70.10 - Alcoholic hepatitis without ascites Status: Acute Assessment and Plan: Supported with AST/ALT ratio >2:1 and hx of alcohol dependence. Hepatitis panel was negative. RUQ US was unremarkable with normal liver with focal lesion or surface abnormality, normal portal flow, and unremarkable gallbladder. Ammonia level normal. LFTs continue to improve. AMA normal. INDIGO pending but liver disease felt likely secondary to acute alcoholic hepatitis given significant improvement in LFTs after cessation of alcohol use. (5) Normocytic anemia: Code(s): D64.9 - Anemia, unspecified Status: Acute Assessment and Plan: Hb 11.8 and Hct 32.9 at admission. Iron studies are consistent with anemia of chronic disease. Folate and vitamin B12 are sufficient. He will need an outpatient screening colonoscopy given his age and I have added Dr. Holcomb's contact information to his discharge instructions for follow-up. Continue to monitor and transfuse PRN to maintain Hb >7. (6) Alcohol abuse: Code(s): F10.10 - Alcohol abuse, uncomplicated Status: Acute Assessment and Plan: He reports that he drinks 6-10 beers per day. He denied a prior hx of alcohol withdrawal symptoms/delirium tremens. He developed symptoms of alcohol withdrawal the evening of 04/04 and received librium and ativan. He is having no further evidence of withdrawal. Continue CIWA protocol and monitor closely. Continue thiamine and folic acid. Continue librium and ativan PRN. (7) Tobacco dependence: Code(s): F17.200 - Nicotine dependence, unspecified, uncomplicated Status: Chronic Assessment and Plan: Continue to encourage smoking cessation. I discussed the importance of tobacco and alcohol cessation with the patient for 5 minutes today. (8) Protein calorie malnutr
[2020-04-08 12:03] LABS: Mitochondrial (M2) Ab (IgG) <=20.0 U (<=20.0)
[2020-04-08] MEDS: HYDROcodone/acetaminophen (*CRX) 5-325 MG TABLET 1 TAB PO (17:51)
[2020-04-08 20:24] LABS: Glucose Point of Care 156 (65-105)
[2020-04-08 22:15] LABS: Albumin 2.2 g/dL (3.8-4.8); Alpha 1 Globulin 0.4 g/dL (0.2-0.3); Alpha 2 Globulin 0.5 g/dL (0.5-0.9); Beta 1 Globulin 0.3 g/dL (0.4-0.6); Gamma Globulin 0.8 g/dL (0.8-1.7); Protein, Total 4.5 g/dL (6.1-8.1)
[2020-04-09 04:17] VITALS: BP 132/87; PULSE 102; RESP 20; TEMP 36.9; O2SAT 100
[2020-04-09] MEDS: LEVOTHYROXINE SODIUM 50 MCG TABLET PO (06:05)
[2020-04-09 06:37] LABS: Basophils Percent Auto 0.1 % (0.2-1.2); Eosinophils Percent Auto 0.1 % (0-4.4); Hematocrit 30.2 % (42.0-52.0); Hemoglobin 10.2 g/dL (14.0-18.0); Immature Granulocyte Absolute 0.14 K/mm3 (0.00-0.031); Lymphocytes Absolute Auto 0.96 K/mm3 (0.9-3.2); Lymphocytes Percent Auto 6.7 % (18.3-44.2); Mean Corpuscular HGB Conc 33.8 g/dl (32-36); Mean Corpuscular Volume 100.7 fl (80-100); Mean Platelet Volume 9.6 fl (7.4-10.4); Monocytes Absolute Auto 1.8 K/mm3 (0.1-0.6); Monocytes Percent Auto 12.8 % (2.6-8.5); Neutrophils Absolute Auto 11.4 K/mm3 (1.3-6.7); Neutrophils Percent Auto 79.3 % (45.5-73.1); Platelet Count Result 295 k/mm3 (150-375); Red Cell Distribution Width 13.1 % (11.5-14.5); White Blood Count 14.3 K/mm3 (4.5-10.0)
[2020-04-09 06:49] LABS: Alanine Aminotransferase 81 U/L (4-50); Albumin Level 2.8 g/dL (3.5-5.1); Alkaline Phosphatase 101 U/L (38-126); Anion Gap 5 mmol/L (8-16); Aspartate Amino Transferase 47 U/L (17-59); Blood Urea Nitrogen 7 mg/dL (9-20); Calcium 8.3 mg/dL (8.4-10.2); Carbon Dioxide 28 mmol/L (22-30); Chloride 101 mmol/L (98-107); Estimated CRCL calculation 89 ml/min; Estimated Glomerular Filt Rate > 60; Glucose 104 mg/dL (75-110); Potassium 4.4 mmol/L (3.4-5.0); Sodium 134 mmol/L (137-145)
[2020-04-09 07:56] VITALS: BP 98/56; PULSE 86; RESP 20; TEMP 36.1; O2SAT 100
--- NOTE | 2020-04-09 08:12 | PM.PNORT ---
Progress Note: A&P Assessment and Plan (1) Closed intertrochanteric fracture of right femur: Onset Date: 03/30/20 Qualifiers: Encounter type: subsequent encounter Fracture alignment: displaced Fracture healing: with routine healing Qualified Code(s): S72.141D - Displaced intertrochanteric fracture of right femur, subsequent encounter for closed fracture with routine healing Code(s): S72.141A - Displaced intertrochanteric fracture of right femur, initial encounter for closed fracture Status: Acute Assessment and Plan: postop day 1. Right hip intramedullary screw fixation. Pain well controlled. Was able to stand yesterday. PT/OT with weight-bearing as tolerated. Disposition when medically cleared. (2) Spinal fracture: Qualifiers: Encounter type: subsequent encounter Fracture of vertebra location: thoracic Thoracic vertebra fracture level: T12 Fracture type: closed Fracture morphology: burst- stable Fracture healing: with routine healing Qualified Code(s): S22.081D - Stable burst fracture of T11-T12 vertebra, subsequent encounter for fracture with routine healing Status: Chronic Assessment and Plan: Vertebral fractures noted on CT of the chest and. Patient without symptoms. Neurovascular intact. Appeared to be subacute or chronic. Continue with conservative care. Subjective Subjective Date/Time Seen: 04/09/20 08:12 Patient awake and alert. Sitting up bed. Ready for physical therapy. He states right hip pain much improved compared to preoperatively. He denies any back pain. He denies numbness or tingling. Exam Const: General: No in distress or confusion Orientation/consciousness: patient oriented x3 and No confusion HENMT: Head: normal to inspection, normocephalic and atraumatic Eyes: Sclera: sclerae normal Resp: Effort & Inspection: normal respiratory effort and no audible wheezes Neuro: General: patient oriented x3 and No confusion Extrem: Other: Right hip incisions clean and dry. Minimal swelling. No active drainage. Moves all toes. Good sensation to light touch throughout. Able to flex and extend the ankle bilaterally. 2+ DP pulses negative Homans sign bilaterally Psych: Affect: normal affect Objective Data Vital Signs Vital Signs: Vital Signs - 24 hr 04/08/20 08:50 04/08/20 08:53 04/08/20 09:05 Temperature 97.9 F 96.9 F L 98 F Pulse Rate 83 102 H 97 Respiratory Rate 10 L 12 12 Blood Pressure 148/94 H 156/96 H 159/94 H Pulse Oximetry 99 100 98 04/08/20 09:20 04/08/20 09:35 04/08/20 09:50 Temperature 97.2 F L 97.3 F L 97.4 F L Pulse Rate 87 85 84 Respiratory Rate 16 12 12 Blood Pressure 147/88 H 143/92 H 146/93 H Pulse Oximetry 92 93 95 04/08/20 10:05 04/08/20 10:15 04/08/20 11:26 Temperature 97.9 F 98.4 F 97.9 F Pulse Rate 88 97 80 Respiratory Rate 22 H 21 H 20 Blood Pressure 150/88 H 144/74 H 148/79 H Pulse Oximetry 97 100 100 04/08/20 11:50 04/08/20 12:56 04/08/20 15:56 Temperature 97.8 F 97.6 F 97.9 F Pulse Rate 80 86 88 Respiratory Rate 20 20 18 Blood Pressure 148/74 H 125/81 144/78 H Pulse Oximetry 100 100 100 04/08/20 19:56 04/08/20 23:56 04/09/20 04:17 Temperature 97.9 F 97.5 F L 98.4 F Pulse Rate 85 87 102 H Respiratory Rate 20 16 20 Blood Pressure 126/83 127/80 132/87 Pulse Oximetry 99 99 100 Intake/Output Intake/Output: Intake & Output 04/06/20 04/07/20 04/08/20 04/09/20 23:59 23:59 23:59 23:59 Intake Total 404 699 1330 250 Output Total 150 650 410 550 Balance 103 858 7845 -300 Meds/Results Medications: Active Medications Generic Name Dose Route Start Last Admin Trade Name Freq PRN Reason Stop Dose Admin Acetaminophen 650 mg 04/08/20 15:58 Tylenol Tablet PO Q4H PRN Pain 1-3 Hydrocodone Bitart/Acetaminophen 1 tab 04/08/20 16:09 04/08/20 17:51 [place] 5-325 Mg PO 1 tab Q4H PRN Administration Pain Rated 4-6 Albuterol 2.5 mg
[2020-04-09] MEDS: DOCUSATE SODIUM 100 MG CAPSULE PO (08:52)
[2020-04-09] MEDS: ENOXAPARIN 30 MG/0.3 ML SYRINGE SUB-Q (08:52)
[2020-04-09] MEDS: THIAMINE HCL 100 MG TABLET PO (08:52)
[2020-04-09] MEDS: FOLIC ACID 1 MG TABLET PO (08:52)
[2020-04-09] MEDS: HYDROcodone/acetaminophen (*CRX) 5-325 MG TABLET 1 TAB PO (08:59)
--- NOTE | 2020-04-09 09:44 | WPDGIPROGNO ---
Progress Note: A&P Additional Plan Patient alert and comfortable this morning. Tolerating diet with no difficulty. Starting to ambulate with assistance. Physical exam reveals patient comfortable at rest. Lungs are clear. Heart without murmur. Abdomen bowel sounds present soft nontender with no organomegaly. Impression 1. Status post repair of hip fracture. Improving per Orthopedic service. 2. Alcoholic hepatitis. LFTs gradually improving. Suggest continued alcohol abstinence if at all possible. This is strongly encouraged at this time. 3. Anemia. Indices suggest anemia of chronic disease. 4. Neoplasia screening. Because of his age elective screening colonoscopy should be arranged as an outpatient. Subjective Date/time seen: 04/09/20 09:44 Objective Data Vital Signs Vital Signs: Vital Signs - 24 hr 04/08/20 09:50 04/08/20 10:05 04/08/20 10:15 Temperature 97.4 F L 97.9 F 98.4 F Pulse Rate 84 88 97 Respiratory Rate 12 22 H 21 H Blood Pressure 146/93 H 150/88 H 144/74 H Pulse Oximetry 95 97 100 04/08/20 11:26 04/08/20 11:50 04/08/20 12:56 Temperature 97.9 F 97.8 F 97.6 F Pulse Rate 80 80 86 Respiratory Rate 20 20 20 Blood Pressure 148/79 H 148/74 H 125/81 Pulse Oximetry 100 100 100 04/08/20 15:56 04/08/20 19:56 04/08/20 23:56 Temperature 97.9 F 97.9 F 97.5 F L Pulse Rate 88 85 87 Respiratory Rate 18 20 16 Blood Pressure 144/78 H 126/83 127/80 Pulse Oximetry 100 99 99 04/09/20 04:17 Temperature 98.4 F Pulse Rate 102 H Respiratory Rate 20 Blood Pressure 132/87 Pulse Oximetry 100 Intake/Output Intake/Output: Intake & Output 04/06/20 04/07/20 04/08/20 04/09/20 23:59 23:59 23:59 23:59 Intake Total 828 489 9855 250 Output Total 150 650 410 550 Balance 667 404 9043 -300 Meds/Results Medications: Active Medications Generic Name Dose Route Start Last Admin Trade Name Freq PRN Reason Stop Dose Admin Acetaminophen 650 mg 04/08/20 15:58 Tylenol Tablet PO Q4H PRN Pain 1-3 Hydrocodone Bitart/Acetaminophen 1 tab 04/08/20 16:09 04/09/20 08:59 [place] 5-325 Mg PO 1 tab Q4H PRN Administration Pain Rated 4-6 Albuterol 2.5 mg 04/08/20 11:58 Albuterol Sulf Neb 2.5mg/0.5ml INHALATION Q6HRT PRN Shortness Of Breath Dextrose 12.5 gm 04/04/20 06:11 04/04/20 11:58 Dextrose 50% Syringe IV PUSH 12.5 gm PRN PRN Administration Hypoglycemia Protocol Docusate Sodium 100 mg 04/08/20 11:00 04/09/20 08:52 Colace Capsule PO 100 mg Q12HR CARLEY Administration Enoxaparin Sodium 30 mg 04/09/20 09:00 04/09/20 08:52 Lovenox SUB-Q 30 mg DAILY CARLEY Administration Ergocalciferol 50,000 unit 04/05/20 09:00 04/05/20 10:46 Drisdol PO Not Given Fr@0900 CARLEY Folic Acid 1 mg 04/04/20 09:00 04/09/20 08:52 Folic Acid PO 1 mg DAILY CARLEY Administration Glucagon 1 mg 04/04/20 06:11 Glucagon For Inj IM PRN PRN Hypoglycemia Protocol Glucose 15 gm 04/04/20 06:11 04/04/20 06:26 Glutose 15 PO 15 gm PRN PRN Administration Hypoglycemia Protocol Dextrose 1,000 mls @ 100 mls/hr 04/04/20 06:11 Dextrose 5% 1,000 Ml IVPB PRN PRN Hypoglycemia Protocol Levothyroxine Sodium 50 mcg 04/05/20 06:30 04/09/20 06:05 Synthroid PO 50 mcg DAILY@0630 CARLEY Administration Lorazepam 1 mg 04/03/20 23:01 04/04/20 23:29 Ativan Inj IV PUSH 1 mg Q3H PRN Administration Withdrawal and CIWA 8 or more Magnesium Hydroxide 30 ml 04/08/20 09:56 Milk Of Magnesia PO BID PRN Constipation Naloxone HCl 0.1 mg 04/08/20 09:56 Narcan IV PUSH Q2M PRN Opiate Reversal Ondansetron HCl 4 mg 04/03/20 15:03 Zofran Inj IV PUSH Q4H PRN Nausea Thiamine HCl 100 mg 04/07/20 09:00 04/09/20 08:52 Vitamin B-1 PO 100 mg QAM CARLEY Administration Radiology Results: ITS Impressions Hip/Pelvis X-Ray 09
[2020-04-09 11:28] LABS: Folic Acid 11.4 ng/mL (2.76->20)
[2020-04-09 11:56] VITALS: BP 98/50; PULSE 93; RESP 18; TEMP 36.4; O2SAT 100
[2020-04-09] MEDS: NICOTINE (*PBKC) 21 MG PATCH 1 PATCH TRANSDERM (13:06)
--- NOTE | 2020-04-09 14:14 | PM.DS ---
DS: Admitting Diagnosis Admitting Diagnosis Admitting Diagnosis: Fall R hip fracture, Hyponatremia, Elevated liver DS: Discharge Diagnosis Discharge Diagnosis (1) Closed intertrochanteric fracture of right femur: Onset Date: 03/30/20 Qualifiers: Encounter type: subsequent encounter Fracture alignment: displaced Fracture healing: with routine healing Qualified Code(s): S72.141D - Displaced intertrochanteric fracture of right femur, subsequent encounter for closed fracture with routine healing Code(s): S72.141A - Displaced intertrochanteric fracture of right femur, initial encounter for closed fracture Status: Acute Assessment and Plan: He sustained a fall 4 days prior to admission and suffered a closed right intertrochanteric fracture. Dr. Perera has been consulted. He is POD #1 s/p right hip intramedullary hip screw by Dr. Perera. He is doing well post-op, working with PT/OT who states he will be fine to return home alone. He cannot have Home Health because he does not have a PCP to sign off. The patient has much help at home with a neighbor who is retired, a brother can check on him as well as 2 sisters to work part-time in can also check on him throughout the day. He is tolerating PO intake well and pain is well-controlled. Post-op care including pain management, weight-bearing, PT/OT, DVT prophylaxis per orthopedic surgery. (2) Altered mental status: Code(s): R41.82 - Altered mental status, unspecified Status: Resolved Assessment and Plan: Resolved. Patient remains A&Ox4 with normal mentation. Original mental status changes probably multifactorial including elevated LFTs, hyponatremia, dehydration, and possibly even some alcohol withdrawal as well as medication induced with narcotics and benzodiazepine. CT brain was ordered and unremarkable. Ammonia was normal. (3) Hyponatremia: Code(s): E87.1 - Hypo-osmolality and hyponatremia Status: Acute Assessment and Plan: Sodium 118 at presentation. Baseline unknown as he has not received medical care in 20 years. He appeared clinically hypovolemic and FeNa was 0% suggesting pre-renal etiology. Beer potomania may be contributing. He is on no medications prior to admission. Urine osmolality was 212 and serum osmolality is 249. Sodium has improved with IV fluids to 136 and IV fluids were discontinued early 04/05. Thyroid function studies were consistent with hypothyroidism and levothyroxine was initiated. AM cortisol was normal. Chest CT showed emphysema with no evidence of malignancy. Educated patient to quit drinking alcohol. (4) Alcoholic hepatitis: Code(s): K70.10 - Alcoholic hepatitis without ascites Status: Acute Assessment and Plan: Supported with AST/ALT ratio >2:1 and hx of alcohol dependence. Hepatitis panel was negative. RUQ US was unremarkable with normal liver with focal lesion or surface abnormality, normal portal flow, and unremarkable gallbladder. Ammonia level normal. LFTs continue to improve. AMA normal. INDIGO pending but liver disease felt likely secondary to acute alcoholic hepatitis given significant improvement in LFTs after cessation of alcohol use. Educated patient to quit drinking alcohol. (5) Normocytic anemia: Code(s): D64.9 - Anemia, unspecified Status: Acute Assessment and Plan: Hb 11.8 and Hct 32.9 at admission. Iron studies are consistent with anemia of chronic disease. Folate and vitamin B12 are sufficient. He will need an outpatient screening colonoscopy given his age and I have added Dr. Holcomb's contact information to his discharge instructions for follow-up. (6) Alcohol abuse: Code(s): F10.10 - Alcohol abuse, uncomplicated Status: Acute Assessment and Plan: He reports that he drinks 6-10 beers per day. He denied a prior hx of alcohol withdrawal symptoms/delirium tremens. He developed symptoms of alcohol withdrawa
[2020-04-10 05:46] LABS: GGT 127 U/L (3-70)
[2020-04-12 05:11] LABS: Creatinine, Random Urine 69 mg/dL (20-320); Total Protein/Creatinine Ratio 261 mg/g creat (22-128)
== END 2020-04-09 16:30 | disposition home or self-care (01) | DRG 308 ==
LOC: ANHED 15:35 → ANH3MEDSUR 16:46 → ANHIMU 21:25 → ANH3MEDSUR 04-08 09:20 → ANHIMU 04-10 15:17
PROVIDERS: Internal Medicine; Internal Medicine Nephrology; Orthopaedic Surgery; Physician Assistant; Admitting Provider Family Medicine; Emergency Provider Emergency Medicine; Visit Provider Physician Assistant
PROC: 0QS636Z Reposition Right Upper Femur with Intramedullary Internal Fixation Device, Percutaneous Approach (ICD-10-PCS; CPT 27245; principal; 2020-04-08 07:30)
DX: S72.141A Displaced intertrochanteric fracture of right femur, initial encounter for closed fracture (principal); E87.1 Hypo-osmolality and hyponatremia; L72.8 Other follicular cysts of the skin and subcutaneous tissue; D63.1 Anemia in chronic kidney disease; K70.10 Alcoholic hepatitis without ascites; Z20.828 Contact with and (suspected) exposure to other viral communicable diseases; R41.82 Altered mental status, unspecified; J44.9 Chronic obstructive pulmonary disease, unspecified; E46 Unspecified protein-calorie malnutrition; W19.XXXA Unspecified fall, initial encounter; E03.9 Hypothyroidism, unspecified; F10.29 Alcohol dependence with unspecified alcohol-induced disorder; F17.200 Nicotine dependence, unspecified, uncomplicated; R09.89 Other specified symptoms and signs involving the circulatory and respiratory systems; S22.081D Stable burst fracture of T11-T12 vertebra, subsequent encounter for fracture with routine healing; E86.0 Dehydration; E55.9 Vitamin D deficiency, unspecified; Z68.1 Body mass index [BMI] 19.9 or less, adult; W13.8XXD Fall from, out of or through other building or structure, subsequent encounter
CPT/HCPCS: 36415; 51701; 70450; 71045; 71250; 73502; 76705; 80048; 80053; 80074; 80307; 81001; 82140; 82248; 82306; 82533; 82550; 82570; 82607; 82728; 82746; 82977; 83520; 83540; 83550; 83735; 83930; 83935; 84100; 84155; 84156; 84165; 84166; 84295; 84300; 84439; 84443; 84466; 84480; 85025; 85027; 85610; 85730; 86038; 86850; 86900; 86901; 87635; 88305; 88309; 88311; 93005; 96374; 96375; 97110; 97116; 97161; 97165; 97530; 99285; A9270; C1713; C9803; J0690; J1100; J1650; J1885; J2060; J2250; J2270; J2405; J2704; J3010; J3411; J7030; J7042; J7120; U0003